=== PATIENT | female | born 1965 | race Caucasian/White ===

== ENCOUNTER 2020-07-22 15:18 | Outpatient (REF) | payer MEDICAID, SELFPAY ==
--- NOTE | 2020-07-22 | US_ITS ---
EXAMINATION: US THYROID CLINICAL INFORMATION: NTSNG. COMPARISON: Ultrasound soft tissue head/neck thyroid dated 05/01/2019 and 10/30/2017. TECHNIQUE: Linear transducer braun-scale and color Doppler examination with attention to the region of the thyroid. FINDINGS: SIZE: Measurements of the thyroid lobes and nodules are given in sagittal, anteroposterior and transverse dimensions respectively. Right Thyroid Lobe: 4.3 x 1.3 x 1.5 cm, volume 4.4 mL. Previously 4.3 x 1.6 x 1.4 cm, volume 5.0 mL. Parenchyma: The gland echotexture is homogeneous. Thyroid vascularity is normal. Left Thyroid Lobe: 4.4 x 1.3 x 1.2 cm, volume 3.6 mL. Previously 3.9 x 1.1 x 1.3 cm, volume 2.9 mL. Parenchyma: The gland echotexture is homogeneous. Thyroid vascularity is normal. Isthmus: 0.3 cm in maximum AP dimension. Previously 0.2 cm. RIGHT THYROID LOBE: There are 2 nodules seen. 1. Location: Middle. Size: 0.9 x 0.7 x 0.7 cm. Previous: 1.0 x 0.8 x 0.8 cm. Nodule characteristics: Heterogeneous and mainly Isoechoic and smoothly marginated. No calcifications. There is peripheral vascularity present. 2. Location: Middle. Size: 0.2 x 0.2 x 0.2 cm. Previous: 0.2 x 0.2 cm (SAG x TRV). Nodule characteristics: Hyperechoic and smoothly marginated with microcalcifications. No internal vascularity.. ISTHMUS: No nodules. LEFT THYROID LOBE: There is 1 nodule seen. 1. Location: Middle. Size: 0.6 x 0.4 x 0.7 cm. Previous: 0.5 x 0.4 x 0.5 cm. Nodule characteristics: Simple colloid cyst without calcification or internal vascularity.. NODES: No lymphadenopathy is seen in the tissue surrounding the thyroid gland. IMPRESSION: Stable appearance of the thyroid gland. Recommend follow-up study in 24 months..
== END 2020-07-22 15:19 | disposition home or self-care (01) ==
LOC: HO.US 15:18
PROVIDERS: Visit Provider Internal Medicine
DX: E04.1 Nontoxic single thyroid nodule (principal)
CPT/HCPCS: 76536

== ENCOUNTER 2020-12-14 12:03 | Emergency (ER) | payer MEDICAID, SELFPAY ==
--- NOTE | ~2020-12-14 | CT_ITS ---
EXAMINATION: CT BRAIN AND CT CERVICAL SPINE WITHOUT CONTRAST. CLINICAL INFORMATION: Fall. Unresponsive. COMPARISON: None TECHNIQUE: 5 mm thin axial and reformatted 2 mm thin sagittal and coronal images of brain were obtained without contrast. Subsequently axial 3 mm thin and reformatted 2 mm thin sagittal and coronal images of cervical spine were obtained. DLP 1260. FINDINGS: Brain: There is no acute intra-axial, extra-axial bleed, masses or midline shift. There is no acute infarction in evolution. The lateral ventricles are symmetrical in size and configuration without enlargement. The braun to white matter differentiation is maintained normal. There is no edema or mass effect. Bone windows reveal no calvarial abnormality. Bilateral paranasal sinuses and mastoid air cells are well-aerated. Cervical spine: There is maintained cervical lordosis. The vertebral heights, alignment and disc heights are normal. There is bilateral C7-T1 facet joint arthropathy. There is no acute fracture, dislocation or lytic process. The craniovertebral junction is normal. No lytic or sclerotic process seen. The prevertebral and paravertebral soft tissues are normal. CT/CT head/brain wo con IMPRESSION: No acute intracranial process seen. No acute fracture or dislocation in cervical spine. There is bilateral C7-T1 facet joint arthropathy.
--- NOTE | ~2020-12-14 | XR_ITS ---
EXAMINATION: XR CHEST CLINICAL INFORMATION: Concern for aspiration COMPARISON: 10/27/2017 TECHNIQUE: Frontal view of the chest was obtained. FINDINGS: Cardiac leads overlie the chest. Lung volumes are low. No consolidation, edema, or effusion. Minimal linear scarring/atelectasis at the left base. No pneumothorax. The cardiomediastinal silhouette is unremarkable. XR/XR chest 1V IMPRESSION: Linear left basilar atelectasis/scarring. Otherwise clear lungs.
--- NOTE | ~2020-12-14 | CT_ITS ---
EXAMINATION: CT BRAIN AND CT CERVICAL SPINE WITHOUT CONTRAST. CLINICAL INFORMATION: Fall. Unresponsive. COMPARISON: None TECHNIQUE: 5 mm thin axial and reformatted 2 mm thin sagittal and coronal images of brain were obtained without contrast. Subsequently axial 3 mm thin and reformatted 2 mm thin sagittal and coronal images of cervical spine were obtained. DLP 1260. FINDINGS: Brain: There is no acute intra-axial, extra-axial bleed, masses or midline shift. There is no acute infarction in evolution. The lateral ventricles are symmetrical in size and configuration without enlargement. The braun to white matter differentiation is maintained normal. There is no edema or mass effect. Bone windows reveal no calvarial abnormality. Bilateral paranasal sinuses and mastoid air cells are well-aerated. Cervical spine: There is maintained cervical lordosis. The vertebral heights, alignment and disc heights are normal. There is bilateral C7-T1 facet joint arthropathy. There is no acute fracture, dislocation or lytic process. The craniovertebral junction is normal. No lytic or sclerotic process seen. The prevertebral and paravertebral soft tissues are normal. CT/CT cervical spine wo con IMPRESSION: No acute intracranial process seen. No acute fracture or dislocation in cervical spine. There is bilateral C7-T1 facet joint arthropathy.
[2020-12-14 12:16] VITALS: BP 148/82; PULSE 78; RESP 18; TEMP 36.4; O2SAT 94; BMI 31.6
--- NOTE | 2020-12-14 12:54 | ECG_ITS ---
Test Reason : AMS Blood Pressure : / mmHG Vent. Rate : 073 BPM Atrial Rate : 073 BPM P-R Int : 206 ms QRS Dur : 086 ms QT Int : 414 ms P-R-T Axes : 049 010 025 degrees QTc Int : 456 ms Normal sinus rhythm Possible Left atrial enlargement Borderline ECG When compared with ECG of 20-MAY-2020 18:10, No significant change was found Referred By: Tracie Esteves Electronically Signed By:Elver Thompson
--- NOTE | 2020-12-14 13:01 | ED_ITS ---
HPI - General Adult General Chief complaint: General Medical Stated complaint: FOUND UNRESPONSIVE IN BED BY FAMILY Time Seen by Provider: 12/14/20 12:54 Source: family and EMS Mode of arrival: EMS Limitations: altered mental status History of Present Illness HPI narrative: 55 y/o female with history of depression, diabetes, HTN, HLD who presents to the ED via EMS with altered mental status. 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 After she got off the phone she started hyperventilating and having a panic attack. reports he called 911. On EMS arrival she was unresponsive. They reported psych issues. Patient arrives poorly responsive but protecting her airway. MD complaint: AMS Onset (ago): hour(s) Radiation: non-radiation Severity: severe Related Data Previous Rx's Medication Instructions Recorded hydroxyzine HCl 50 mg PO BID PRN #10 tab 12/14/20 Allergies Allergy/AdvReac Type Severity Reaction Status Date / Time coconut [COCONUT] Allergy Unknown RASH Unverified 06/25/20 19:25 peanut [PEANUTS] Allergy Unknown RASH Unverified 06/25/20 19:25 strawberry [STRAWBERRY] Allergy Unknown RASH Unverified 06/25/20 19:25 SEAFOOD Allergy Unknown RASH Uncoded 06/25/20 19:25 SHELLFISH Allergy Unknown Uncoded 06/13/19 00:00 Review of Systems Review of Systems: Yes Unobtainable due to mental status PMFSH Social History Social History Advance Directives: No Advance Directives Information Provided: No Physical Exam Vital Signs: Vital Signs: Last Vital Signs Temp 97.5 F 12/14/20 12:16 Pulse 78 12/14/20 12:16 Resp 18 12/14/20 12:16 BP 148/82 H 12/14/20 12:16 Pulse Ox 94 12/14/20 12:16 Body Mass Index 31.6 After a few minutes in the ER patient woke up and is neurologically intact Appearance: Alert. Oriented X3. No acute distress. Eyes: Pupils equal, round and reactive to light. ENT: Pharynx normal. Neck: Normal inspection. Neck supple. CVS: Normal heart rate and rhythm. Pulses normal. Respiratory: No respiratory distress. Breath sounds normal. Abdomen: Soft and nontender. +BS x4 Skin: Skin warm and dry. Normal skin color. Normal skin turgor. No rashes. Extremities: No lower extremity edema. Neuro: Oriented X 3. No motor deficit. No sensory deficit. Walks with steady gait, slight limp Course Course Course Narrative: 55 y/o female presenting with question of syncopal episode after hyeprvnetilation and panic attack at home. Will need to r/o cardiac and metabolic causes. She denies drug or ETOH use. She admits to reactions like this in the past when she gets stressful news. Reevaluation(s) Reevaluation #1: CT head negative. Metabolic workup is negative. She is ambulating with steady gait. She is stable for discharge. Medical Decision Making Lab Data Result diagrams: 12/14/20 14:13 12/14/20 14:13 Labs: Lab Results 12/14/20 12/14/20 12/14/20 Range/Units 14:13 14:13 14:13 WBC 6.6 (4.8-10.8) X10*3/uL RBC 4.05 L (4.20-5.50) X10*6/uL Hgb 12.1 (12.0-16.0) g/dl Hct 35.9 L (37-47) % MCV 88.6 (80-98) fL MCH 29.9 (27.0-33.0) pg MCHC 33.7 (31.0-35.0) g/dl RDW 13.2 (11.0-16.0) % Plt Count 236 (160-400) X10*3/uL MPV 10.4 (9.4-12.3) fL Immature Gran % (Auto) 0.5 H (0.0-0.4) % Neut % (Auto) 72.4 (45-73) % Lymph % (Auto) 15.2 L (20-40) % Pettis % (Auto) 7.0 (2-11) % Eos % (Auto) 4.6 H (0-4) % Baso % (Auto) 0.3 (0-2) % Lymph # (Auto) 1.0 L (1.2-4.9) X10*3/uL Pettis # (Auto) 0.5 (0.1-1.2) X10*3/uL Eos # (Auto) 0.3 (0.0-0.4) X10*3/uL Baso # (Auto) 0.0 (0.0-0.2) X10*3/uL Abs Immat Gran (auto) 0.03 (0.00-0.03) X10*3/uL Absolute Neuts (auto) 4.8 (2.0-8.3) X10*3/uL Absolute Nucleated RBC 0.000 (0.0-0.012) X10*3/uL Nucleated RBC % (auto) 0.0 (0.0-0.2) /100WBC PT 12.0 (10.8-13.0) SEC INR 1.0 (0.9-1.1) APTT 25.7 (24.1-38.0) SEC Sodium 141 (135-145) mmol/L Potassium 3.7 (3.3-5.1) mmol/L Chloride 101 (96-108) mmol/L Carbon Dioxide 31 H (22-29) mmol/L Anion Gap 13 (12-20) BUN 17 H (9-16) mg/dL Creatinine 0.84 (0.5-1.4) mg/dL Estim Creat Clear Calc 88.7 Estimated GFR > 60 Random Glucose 115 (60-115) mg/dL Lactic Acid (0.5-2.0) mmol/L Calcium 8.8 (8.4-10.2) mg/dL Magnesium 1.6 (1.6-2.6) mg/dL Total Bilirubin 0.4 (0.0-1.0) mg/dL Direct Bilirubin 0.2 (0.0-0.5) mg/dL AST 21 (5-31) U/L ALT 31 (0-31) U/L Alkaline Phosphatase 88 (39-117) U/L Ammonia (13-55) umol/L Total Protein 7.2 (6.5-8.0) g/dL Albumin 4.3 (3.5-5.0) g/dL TSH (0.32-4.0) uIU/mL Ethyl Alcohol mg/dL COVID-19 (JILLIAN) (Negative) COVID-19 Clin Com 12/14/20 12/14/20 12/14/20 Range/Units 14:13 14:13 14:13 WBC (4.8-10.8) X10*3/uL RBC (4.20-5.50) X10*6/uL Hgb (12.0-16.0) g/dl Hct (37-47) % MCV (80-98) fL MCH (27.0-33.0) pg MCHC (31.0-35.0) g/dl RDW (11.0-16.0) % Plt Count (160-400) X10*3/uL MPV (9.4-12.3) fL Immature Gran % (Auto) (0.0-0.4) % Neut % (Auto) (45-73) % Lymph % (Auto) (20-40) % Pettis % (Auto) (2-11) % Eos % (Auto) (0-4) % Baso % (Auto) (0-2) % Lymph # (Auto) (1.2-4.9) X10*3/uL Pettis # (Auto) (0.1-1.2) X10*3/uL Eos # (Auto) (0.0-0.4) X10*3/uL Baso # (Auto) (0.0-0.2) X10*3/uL Abs Immat Gran (auto) (0.00-0.03) X10*3/uL Absolute Neuts (auto) (2.0-8.3) X10*3/uL Absolute Nucleated RBC (0.0-0.012) X10*3/uL Nucleated RBC % (auto) (0.0-0.2) /100WBC PT (10.8-13.0) SEC INR (0.9-1.1) APTT (24.1-38.0) SEC Sodium (135-145) mmol/L Potassium (3.3-5.1) mmol/L Chloride (96-108) mmol/L Carbon Dioxide (22-29) mmol/L Anion Gap (12-20) BUN (9-16) mg/dL Creatinine (0.5-1.4) mg/dL Estim Creat Clear Calc Estimated GFR Random Glucose (60-115) mg/dL Lactic Acid 1.5 (0.5-2.0) mmol/L Calcium (8.4-10.2) mg/dL Magnesium (1.6-2.6) mg/dL Total Bilirubin (0.0-1.0) mg/dL Direct Bilirubin (0.0-0.5) mg/dL AST (5-31) U/L ALT (0-31) U/L Alkaline Phosphatase (39-117) U/L Ammonia (13-55) umol/L Total Protein (6.5-8.0) g/dL Albumin (3.5-5.0) g/dL TSH (0.32-4.0) uIU/mL Ethyl Alcohol < 10 mg/dL COVID-19 (JILLIAN) Negative (Negative) COVID-19 Clin Com See Note 12/14/20 12/14/20 Range/Units 14:13 14:13 WBC (4.8-10.8) X10*3/uL RBC (4.20-5.50) X10*6/uL Hgb (12.0-16.0) g/dl Hct (37-47) % MCV (80-98) fL MCH (27.0-33.0) pg MCHC (31.0-35.0) g/dl RDW (11.0-16.0) % Plt Count (160-400) X10*3/uL MPV (9.4-12.3) fL Immature Gran % (Auto) (0.0-0.4) % Neut % (Auto) (45-73) % Lymph % (Auto) (20-40) % Pettis % (Auto) (2-11) % Eos % (Auto) (0-4) % Baso % (Auto) (0-2) % Lymph # (Auto) (1.2-4.9) X10*3/uL Pettis # (Auto) (0.1-1.2) X10*3/uL Eos # (Auto) (0.0-0.4) X10*3/uL Baso # (Auto) (0.0-0.2) X10*3/uL Abs Immat Gran (auto) (0.00-0.03) X10*3/uL Absolute Neuts (auto) (2.0-8.3) X10*3/uL Absolute Nucleated RBC (0.0-0.012) X10*3/uL Nucleated RBC % (auto) (0.0-0.2) /100WBC PT (10.8-13.0) SEC INR (0.9-1.1) APTT (24.1-38.0) SEC Sodium (135-145) mmol/L Potassium (3.3-5.1) mmol/L Chloride (96-108) mmol/L Carbon Dioxide (22-29) mmol/L Anion Gap (12-20) BUN (9-16) mg/dL Creatinine (0.5-1.4) mg/dL Estim Creat Clear Calc Estimated GFR Random Glucose (60-115) mg/dL Lactic Acid (0.5-2.0) mmol/L Calcium (8.4-10.2) mg/dL Magnesium (1.6-2.6) mg/dL Total Bilirubin (0.0-1.0) mg/dL Direct Bilirubin (0.0-0.5) mg/dL AST (5-31) U/L ALT (0-31) U/L Alkaline Phosphatase (39-117) U/L Ammonia 34 (13-55) umol/L Total Protein (6.5-8.0) g/dL Albumin (3.5-5.0) g/dL TSH 0.83 (0.32-4.0) uIU/mL Ethyl Alcohol mg/dL COVID-19 (JILLIAN) (Negative) COVID-19 Clin Com ECG Data Attestation: I personally reviewed and interpreted this ECG as follows: Prior ECG tracings: available for review Interpretation: normal sinus rhythm, HR 73 bpm, prolonged CO interval 206 ms, normal QTc, no ST segment elevations. unchanged from prior EKG Critical Care Time Critical Care Time Critical Care Time: No Discharge Plan Discharge Clinical Impression: Anxiety reaction Patient Disposition: Home, Self-Care Instructions: Panic Attack (ED) Additional Instructions: Your lab workup today was unremarkable. Your CT scan of your brain was normal. Your symptoms were due to panic attack and anxiety after hearing stressful news. Recommend follow up with your doctor tomorrow. Take the prescribed medication as needed for anxiety. If you have recurrent symptoms or develop any new or concerning symptoms come back to the ER for further evaluation. Prescriptions: New hydroxyzine HCl 50 mg tablet 50 mg PO BID PRN (Reason: anxiety) Qty: 10 RF: 0 Print Language: Slovenian
[2020-12-14 14:20] LABS: MANUAL DIFF FLAG NO
[2020-12-14 14:27] LABS: Basophils Percent Auto 0.3 % (0-2); Eosinophils Absolute Auto 0.3 X10*3/uL (0.0-0.4); Eosinophils Percent Auto 4.6 % (0-4); Hematocrit 35.9 % (37-47); Hemoglobin 12.1 g/dl (12.0-16.0); Imm Gran Abs Auto 0.03 X10*3/uL (0.00-0.03); Imm Gran Pct Auto 0.5 % (0.0-0.4); Lymphocytes Percent Auto 15.2 % (20-40); Mean Corpuscular HGB Conc 33.7 g/dl (31.0-35.0); Mean Corpuscular Hemoglobin 29.9 pg (27.0-33.0); Mean Corpuscular Volume 88.6 fL (80-98); Mean Platelet Volume 10.4 fL (9.4-12.3); Monocytes Absolute Auto 0.5 X10*3/uL (0.1-1.2); Neutrophils Absolute Auto 4.8 X10*3/uL (2.0-8.3); Neutrophils Percent Auto 72.4 % (45-73); Platelet Count 236 X10*3/uL (160-400); Red Blood Count 4.05 X10*6/uL (4.20-5.50); Red Cell Distribution Width 13.2 % (11.0-16.0); White Blood Count 6.6 X10*3/uL (4.8-10.8)
[2020-12-14 14:31] LABS: Partial Thromboplastin Time 25.7 SEC (24.1-38.0)
[2020-12-14 14:38] LABS: Ammonia 34 umol/L (13-55)
[2020-12-14 14:39] LABS: COVID-19 Test Negative (Negative)
[2020-12-14 14:41] LABS: Lactic Acid 1.5 mmol/L (0.5-2.0)
[2020-12-14 14:48] LABS: Ethanol < 10 mg/dL
[2020-12-14 14:49] LABS: Alanine Aminotransferase 31 U/L (0-31); Albumin Level 4.3 g/dL (3.5-5.0); Alkaline Phosphatase 88 U/L (39-117); Anion Gap 13 (12-20); Aspartate Amino Transferase 21 U/L (5-31); Bilirubin Direct 0.2 mg/dL (0.0-0.5); Bilirubin Total 0.4 mg/dL (0.0-1.0); Blood Urea Nitrogen 17 mg/dL (9-16); Calcium 8.8 mg/dL (8.4-10.2); Carbon Dioxide 31 mmol/L (22-29); Chloride 101 mmol/L (96-108); Creatinine Clr Calc Pharmacy 88.7; Estimated Glomerular Filt Rate > 60; Glucose Random 115 mg/dL (60-115); Magnesium 1.6 mg/dL (1.6-2.6); Potassium 3.7 mmol/L (3.3-5.1); Sodium 141 mmol/L (135-145); Total Protein 7.2 g/dL (6.5-8.0)
[2020-12-14 15:05] LABS: TSH reflex Free T4 0.83 uIU/mL (0.32-4.0)
[2020-12-14 18:23] VITALS: BP 130/80; PULSE 75; RESP 18; TEMP 36.8; O2SAT 96
== END 2020-12-14 18:24 | disposition home or self-care (01) ==
PROVIDERS: Physician Assistant; Emergency Provider Emergency Medicine; PCP Internal Medicine
DX: F41.0 Panic disorder [episodic paroxysmal anxiety] (principal); F41.9 Anxiety disorder, unspecified; Z20.822 Contact with and (suspected) exposure to COVID-19
CPT/HCPCS: 36415; 70450; 71045; 72125; 80048; 80076; 80320; 82140; 83605; 83735; 84443; 85025; 85610; 85730; 87040; 87635; 93005; 99283; 99284

== ENCOUNTER 2020-12-30 11:11 | Emergency (ER) | payer MEDICAID, SELFPAY ==
--- NOTE | ~2020-12-30 | XR_ITS ---
EXAMINATION: XR ANKLE, RIGHT XR FOOT, RIGHT CLINICAL INFORMATION: Fall, trauma, pain COMPARISON: None TECHNIQUE: 2 views right ankle, 2 views right foot, a lateral view of the combined right ankle and foot are obtained for a total of 5 views. FINDINGS: Right ankle shows no fracture or dislocation. The malleoli are intact and the ankle mortise is symmetric. Talar dome shows no osteochondral lesion. There is no visible ankle capsular effusion. The retrocalcaneal recess is preserved. There are posterior and plantar calcaneal spurs. The subtalar joint is unremarkable. The right midfoot and forefoot show no fracture or dislocation. There are degenerative changes DIP joints of the third and fourth toes. No visible erosive change. XR/XR foot RT min 3V IMPRESSION: 1. No fracture or dislocation. 2. Posterior and plantar calcaneal spurs. 3. Osteoarthritic changes DIP joints third and fourth toes.
--- NOTE | ~2020-12-30 | XR_ITS ---
EXAMINATION: XR HIP, RIGHT CLINICAL INFORMATION: Fall, trauma, pain COMPARISON: None TECHNIQUE: AP pelvis is performed along with AP and frog-lateral projections of the right hip. FINDINGS: There is no fracture or dislocation. The SI joints and pubis show no diastases. There is borderline/mild osteitis pubis. Right hip shows no fracture or dislocation. No hip joint narrowing or erosive change. There is mild spurring bilateral greater trochanters. Some borderline whiskering bilateral lateral iliac wings. Bowel gas unremarkable. XR/XR hip RT w PEL1V IMPRESSION: No fracture or dislocation.
--- NOTE | ~2020-12-30 | XR_ITS ---
EXAMINATION: XR SHOULDER, RIGHT CLINICAL INFORMATION: Fall, trauma, pain COMPARISON: None TECHNIQUE: Right shoulder is imaged in 4 views. FINDINGS: There is no fracture, dislocation, or destructive process. Punctate calcific tendinosis is present adjacent to the greater tuberosity in region of distal infraspinatus. There is some mineralization in the acromioclavicular joint. No erosive change. The acromioclavicular alignment is normal. The glenohumeral joint is normal. Visualized right lung apex shows no pneumothorax or pleural reaction. XR/XR shoulder RT min 2V IMPRESSION: Punctate calcific tendinosis in region of distal infraspinatus. No fracture or dislocation.
--- NOTE | ~2020-12-30 | XR_ITS ---
EXAMINATION: XR ANKLE, RIGHT XR FOOT, RIGHT CLINICAL INFORMATION: Fall, trauma, pain COMPARISON: None TECHNIQUE: 2 views right ankle, 2 views right foot, a lateral view of the combined right ankle and foot are obtained for a total of 5 views. FINDINGS: Right ankle shows no fracture or dislocation. The malleoli are intact and the ankle mortise is symmetric. Talar dome shows no osteochondral lesion. There is no visible ankle capsular effusion. The retrocalcaneal recess is preserved. There are posterior and plantar calcaneal spurs. The subtalar joint is unremarkable. The right midfoot and forefoot show no fracture or dislocation. There are degenerative changes DIP joints of the third and fourth toes. No visible erosive change. XR/XR ankle RT 2V IMPRESSION: 1. No fracture or dislocation. 2. Posterior and plantar calcaneal spurs. 3. Osteoarthritic changes DIP joints third and fourth toes.
[2020-12-30 11:18] VITALS: BP 148/76; PULSE 86; O2SAT 96
[2020-12-30 11:22] VITALS: BP 138/82; PULSE 80; RESP 16; TEMP 36.8; O2SAT 100; BMI 39.4
[2020-12-30] MEDS: Ketorolac Tromethamine 30 MG/ML VIAL IM (12:47)
[2020-12-30] MEDS: Cyclobenzaprine HCl 5 MG TABLET PO (12:47)
--- NOTE | 2020-12-30 14:00 | ED_ITS ---
HPI - Fall General Chief Complaint: Fall Stated Complaint: fell down 2 steps, pain Time Seen by Provider: 12/30/20 12:16 Related Data Previous Rx's Medication Instructions Recorded hydroxyzine HCl 50 mg PO BID PRN #10 tab 12/14/20 acetaminophen [Tylenol Extra 500 mg PO Q6H PRN #20 tab 12/30/20 Strength] cyclobenzaprine 5 mg PO Q8H PRN 5 Days #14 tab 12/30/20 lidocaine [Lidoderm] 1 patch TOPICAL DAILY PRN #30 ea 12/30/20 MDD remove after 12 hours naproxen 500 mg PO BID PRN 10 Days #20 tab 12/30/20 Allergies Allergy/AdvReac Type Severity Reaction Status Date / Time coconut [COCONUT] Allergy Unknown RASH Unverified 06/25/20 19:25 peanut [PEANUTS] Allergy Unknown RASH Unverified 06/25/20 19:25 strawberry [STRAWBERRY] Allergy Unknown RASH Unverified 06/25/20 19:25 SEAFOOD Allergy Unknown RASH Uncoded 06/25/20 19:25 SHELLFISH Allergy Unknown Uncoded 06/13/19 00:00 [facility] Past Medical History Medical History (Updated 12/30/20 @ 14:09 by LIBRADO Garcia) Depression Diabetes HTN (hypertension) Sleep apnea Social History Social History Alcohol intake: never Smoking Status: Never smoker Use of substances other than those prescribed or required for medical reasons: No Advance Directives: No Advance Directives Information Provided: No Physical Exam Vital Signs: Vital Signs: Last Vital Signs Temp 98.2 F 12/30/20 11:22 Pulse 80 12/30/20 11:22 Resp 16 12/30/20 11:22 BP 138/82 12/30/20 11:22 Pulse Ox 100 12/30/20 11:22 Body Mass Index 39.4 Course Course Course Narrative: XR shoulder RT min 2V IMPRESSION: Punctate calcific tendinosis in region of distal infraspinatus. No fracture or dislocation. XR hip RT w PEL1V IMPRESSION: No fracture or dislocation XR foot RT min 3V IMPRESSION: 1. No fracture or dislocation. 2. Posterior and plantar calcaneal spurs. 3. Osteoarthritic changes DIP joints third and fourth toes >> patient placed in Aircast to right ankle to follow-up with PCP. 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 She verbalized understanding and feels safe for discharge home Discharge Plan Discharge Clinical Impression: Right ankle sprain Qualifiers: Encounter type: initial encounter Involved ligament of ankle: unspecified ligament Qualified Code(s): S93.401A - Sprain of unspecified ligament of right ankle, initial encounter Shoulder tendinitis Qualifiers: Laterality: right Qualified Code(s): M77.8 - Other enthesopathies, not elsewhere classified Fall Qualifiers: Encounter type: initial encounter Qualified Code(s): W19.XXXA - Unspecified fall, initial encounter Patient Disposition: Home, Self-Care Instructions: Ankle Sprain (ED), Tendinitis (ED) Additional Instructions: You likely sprained her ankle. Wear Aircast at home as needed for comfort/stability. Ice and elevate your ankle Your pain is likely musculoskeletal Flexeril is a muscle relaxer, take at night as it makes you drowsy, do not drive, drink alcohol, or operate machinery while taking it Naproxen as an anti-inflammatory / pain medication, take with food Lidoderm patches are numbing patches, apply to painful area In addition take Tylenol at home Follow-up with your doctor If symptoms persist or worsen, pain becomes unbearable, you developed urinary retention or incontinence, or weakness return to the ED Probablemente le hizo un esguince en el tobillo. Use Aircast en casa seg?n sea necesario para mayor comodidad / estabilidad. Hielo y eleva tu tobillo Es probable que milan dolor sea musculoesquel?daryl Flexeril es un relajante muscular, t?blood por la noche ya que le produce somnolencia, no conduzca, no herson alcohol ni utilice maquinaria mientras lo beverly. Naproxeno mariela medicamento antiinflamatorio / analg?sico, drew con alimentos. Los parches de Lidoderm son parches que adormecen, se aplican al ?maritza dolorida Adem?s, tome Tylenol en casa. Seguimiento con milan m?dico Si los s?ntomas persisten o empeoran, el dolor se vuelve insoportable, desarroll? retenci?n urinaria o incontinencia, o debilidad regrese al servicio de urgencias Prescriptions: New acetaminophen [Tylenol Extra Strength] 500 mg tablet 500 mg PO Q6H PRN (Reason: pain or fever) Qty: 20 RF: 0 lidocaine [Lidoderm] 5 % adhesive patch,medicated 1 patch topical DAILY MDD remove after 12 hours PRN (Reason: pain) Qty: 30 RF: 0 naproxen 500 mg tablet 500 mg PO BID PRN (Reason: pain) 10 Days Qty: 20 RF: 0 cyclobenzaprine 5 mg tablet 5 mg PO Q8H PRN (Reason: pain (scale score 7-10)) 5 Days Qty: 14 RF: 0 No Action hydroxyzine HCl 50 mg tablet 50 mg PO BID PRN (Reason: anxiety) Qty: 10 RF: 0 Referrals: Wicho Elmore MD [Emergency Provider] - 5 days Print Language: Kazakh
== END 2020-12-30 14:30 | disposition home or self-care (01) ==
PROVIDERS: Emergency Provider Emergency Medicine
DX: S93.401A Sprain of unspecified ligament of right ankle, initial encounter (principal); W10.8XXA Fall (on) (from) other stairs and steps, initial encounter; M75.31 Calcific tendinitis of right shoulder; E11.9 Type 2 diabetes mellitus without complications; I10 Essential (primary) hypertension; Y93.9 Activity, unspecified; Y92.038 Other place in apartment as the place of occurrence of the external cause; Y99.9 Unspecified external cause status
CPT/HCPCS: 73030; 73502; 73600; 73630; 96372; 99284; J1885

== ENCOUNTER 2021-04-30 11:35 | Outpatient (REF) | payer MEDICAID, SELFPAY ==
--- NOTE | ~2021-04-30 | XR_ITS ---
EXAMINATION: XR LUMBOSACRAL SPINE WITH OBLIQUES CLINICAL INFORMATION: Lumbago with sciatica, bilateral.. COMPARISON: None TECHNIQUE: AP, both oblique, and lateral views of the lumbar spine. Lateral view of the lumbosacral junction. FINDINGS: There is maintained lumbar lordosis. The vertebral heights, alignment and disc heights are normal. On oblique views there is no pars defect or listhesis. No acute fracture or lytic process seen. The soft tissues are normal. XR/XR lumbar spine 4V min IMPRESSION: Unremarkable lumbar spine exam. No acute fracture, dislocation or subluxation seen.
--- NOTE | ~2021-04-30 | XR_ITS ---
EXAMINATION: XR HIP, RIGHT XR HIP, LEFT CLINICAL INFORMATION: Fall. Pain. COMPARISON: Right hip radiographs dated 12/30/2020 TECHNIQUE: AP view of the pelvis as well as AP and frog-leg lateral views of the right and left hip. FINDINGS: No acute fracture or dislocation. Small right and left acetabular marginal osteophytes, unchanged. No significant joint space narrowing. No osseous erosion. Pelvic phleboliths. XR/XR hip RT min 2V IMPRESSION: Mild right and left hip osteoarthritis, unchanged. No acute osseous abnormality.
--- NOTE | ~2021-04-30 | XR_ITS ---
EXAMINATION: XR HIP, RIGHT XR HIP, LEFT CLINICAL INFORMATION: Fall. Pain. COMPARISON: Right hip radiographs dated 12/30/2020 TECHNIQUE: AP view of the pelvis as well as AP and frog-leg lateral views of the right and left hip. FINDINGS: No acute fracture or dislocation. Small right and left acetabular marginal osteophytes, unchanged. No significant joint space narrowing. No osseous erosion. Pelvic phleboliths. XR/XR hip LT min 2V IMPRESSION: Mild right and left hip osteoarthritis, unchanged. No acute osseous abnormality.
== END 2021-04-30 11:36 | disposition home or self-care (01) ==
LOC: HO.XRAY 11:35
PROVIDERS: PCP Internal Medicine; Visit Provider Internal Medicine
DX: M54.41 Lumbago with sciatica, right side (principal); M54.42 Lumbago with sciatica, left side
CPT/HCPCS: 72110; 73502

== ENCOUNTER 2021-05-27 13:14 | Outpatient (RCR) | payer MEDICAID, SELFPAY | END 2021-07-22 15:14 | disposition home or self-care (01) | LOC: HO.PT 13:14 | PROVIDERS: PCP Internal Medicine; Visit Provider Internal Medicine | DX: M54.42 Lumbago with sciatica, left side (principal); M54.41 Lumbago with sciatica, right side; W19.XXXD Unspecified fall, subsequent encounter | CPT/HCPCS: 97162 ==

== ENCOUNTER 2021-06-11 08:51 | Outpatient (REF) | payer MEDICAID, SELFPAY ==
--- NOTE | ~2021-06-11 | MR_ITS ---
EXAMINATION: MR LUMBAR SPINE WITHOUT CONTRAST CLINICAL INFORMATION: Urinary incontinence. COMPARISON: Plain films of the lumbar spine 04/30/2021. TECHNIQUE: MRI of the lumbar spine was obtained using routine sequences without contrast. FINDINGS: VERTEBRAL BODIES AND PARASPINAL STRUCTURES: There is anatomic alignment of the vertebral bodies. There is narrowing of intervertebral disc height at the level of L4-L5 with loss of signal from the disc and there are mild degenerative endplate contour changes with predominantly fatty signal. There is loss of intervertebral disc height and signal at the levels of L3-L4 and L5-S1. There are mild edematous endplate signal changes along the endplates at L5-S1. Vertebral body heights are maintained and no fractures are demonstrated. There is a focus of hyperintense T1 and T2 signal in the body of L1 toward the right, most consistent with a hemangioma. There is a cyst at the upper pole of the left kidney. A small cyst is noted at the midpole of the right kidney posteriorly. The visualized pelvic structures are unremarkable. CONUS MEDULLARIS AND CAUDA EQUINA: Normal, terminating at the level of T12-L1. The lower thoracic spinal cord appears normal. The cauda equina nerve roots and filum terminale appear normal. SPINAL LEVELS: T12-L1: The facet joints appear normal bilaterally. Disc contour is normal. There is no central stenosis or foraminal narrowing. L1-L2: The facet joints appear normal bilaterally. Disc contour is normal. There is no central stenosis or foraminal narrowing. L2-L3: The facet joints appear normal bilaterally. Disc contour is normal. There is no central stenosis or foraminal narrowing. L3-L4: There is mild bilateral facet arthropathy with ligamenta flava hypertrophy and small facet joint effusions. There is a posterior disc protrusion extending into the inferior neural foramina bilaterally without definite exiting nerve root impingement. There are small cysts in the neural foramina bilaterally, larger on the right. There is no central stenosis. L4-L5: There is moderate to severe bilateral facet arthropathy with ligamenta flava hypertrophy and facet joint effusions. There is a broad-based posterior disc protrusion which extends into the inferior neural foramina bilaterally without definite exiting nerve root impingement. In addition, there is a disc extrusion on the right extending caudad into the right lateral recess of L5. There is impingement on the traversing right L5 nerve root, and there severe compression of the thecal sac, which is displaced toward the left. L5-S1: There is moderate bilateral facet arthropathy with bilateral facet joint effusions. There is a posterior disc protrusion which is most prominent extending into the left neural foramen without definite exiting nerve root impingement. A small extruded component extends in the midline behind the body of S1 and there is mild impingement on the traversing S1 nerve roots. There is no central stenosis. MR/MR lumbar spine wo con IMPRESSION: 1. At L4-L5 there is facet arthropathy and there is a broad-based posterior disc protrusion/extrusion. The extrusion extends into the right lateral recess of L5 and there is impingement on the traversing right L5 nerve root with severe compression of the thecal sac which is displaced toward the left. 2. At L5-S1 there is facet arthropathy and there is a posterior disc protrusion, with a small extruded component. There is mild impingement on the traversing S1 nerve roots. There is no central stenosis. 3. At L3-L4 there is facet arthropathy and is a posterior disc protrusion without definite exiting nerve root impingement. There is no central stenosis.
== END 2021-06-11 08:52 | disposition home or self-care (01) ==
LOC: HO.MRI 08:51
PROVIDERS: PCP Internal Medicine; Visit Provider Family Medicine
DX: M54.17 Radiculopathy, lumbosacral region (principal); R29.898 Other symptoms and signs involving the musculoskeletal system; R32 Unspecified urinary incontinence
CPT/HCPCS: 72148

== ENCOUNTER 2021-06-25 13:15 | Outpatient (REF) | payer MEDICAID, SELFPAY ==
--- NOTE | ~2021-06-25 | MM_ITS ---
EXAMINATION: MM SCREENING DIGITAL BREAST TOMOSYNTHESIS, BILATERAL CLINICAL INFORMATION: Screening. Asymptomatic. The lifetime risk of breast cancer based on the Tyrer-Cuzick Model is 6.1%. COMPARISON: Mammography: November 14, 2018 and studies dating back to January 30, 2018 TECHNIQUE: Digital breast tomosynthesis is performed in both the craniocaudal and mediolateral oblique views along with computer-aided detection (CAD). Synthesized 2D images are generated from the tomosynthesis. FINDINGS: The breasts are almost entirely fatty (ACR BI-RADS breast composition Category a). There are no significant masses, abnormal calcifications, or other abnormalities. Stable circumscribed densities are seen bilaterally. MM/MM tomosynthesis screening BI IMPRESSION: There are no significant changes from prior study. ASSESSMENT: BI-RADS 2: Benign RECOMMENDATION: Routine annual mammography screening. This patient's information was entered into a reminder system with a target due date for their next mammogram.
== END 2021-06-25 13:16 | disposition home or self-care (01) ==
LOC: HO.MAMMO 13:15
PROVIDERS: PCP Internal Medicine; Visit Provider Internal Medicine
DX: Z12.31 Encounter for screening mammogram for malignant neoplasm of breast (principal)
CPT/HCPCS: 77063; 77067

== ENCOUNTER 2022-03-21 12:17 | Emergency (ER) | payer MEDICAID, SELFPAY ==
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
[2022-03-21 12:21] VITALS: BP 148/80; PULSE 88; O2SAT 95
[2022-03-21 12:22] VITALS: BP 154/87; PULSE 31; RESP 18; TEMP 36.6; O2SAT 95; BMI 31.6
[2022-03-21] MEDS: Cyclobenzaprine HCl 10 MG TABLET PO (13:04)
[2022-03-21] MEDS: Acetaminophen 325 MG TABLET 975 MG PO (13:05)
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
== END 2022-03-21 16:18 | disposition home or self-care (01) ==
PROVIDERS: Emergency Provider Emergency Medicine
DX: S06.0X0A Concussion without loss of consciousness, initial encounter (principal); S13.4XXA Sprain of ligaments of cervical spine, initial encounter; S46.911A Strain of unspecified muscle, fascia and tendon at shoulder and upper arm level, right arm, initial encounter; S46.811A Strain of other muscles, fascia and tendons at shoulder and upper arm level, right arm, initial encounter; S86.811A Strain of other muscle(s) and tendon(s) at lower leg level, right leg, initial encounter; I10 Essential (primary) hypertension; E11.9 Type 2 diabetes mellitus without complications; V43.62XA Car passenger injured in collision with other type car in traffic accident, initial encounter; Y93.9 Activity, unspecified; Y92.410 Unspecified street and highway as the place of occurrence of the external cause; Y99.9 Unspecified external cause status
CPT/HCPCS: 70450; 72125; 73030; 73080; 73564; 99283; 99284

== ENCOUNTER 2022-07-01 13:52 | Outpatient (REF) | payer MEDICAID, SELFPAY ==
--- NOTE | ~2022-07-01 | MM_ITS ---
EXAMINATION: MM SCREENING DIGITAL BREAST TOMOSYNTHESIS, BILATERAL CLINICAL INFORMATION: Screening. Asymptomatic. Left excisional biopsy 03/09/2018 (radial sclerosing lesion, intraductal papillomatosis, usual ductal hyperplasia, adenosis). The lifetime risk of breast cancer based on the Tyrer-Cuzick Model is 6%. COMPARISON: Mammography: 06/25/2021, 11/14/2018, 03/09/2018, 02/25/2018, 01/30/2018. TECHNIQUE: Digital breast tomosynthesis is performed in both the craniocaudal and mediolateral oblique views along with computer-aided detection (CAD). Synthesized 2D images are generated from the tomosynthesis. FINDINGS: There are scattered areas of fibroglandular density (ACR BI-RADS breast composition Category b). Parenchymal pattern is similar to prior studies. There is no developing density or interval significant mass or architectural abnormality or abnormal calcifications. There is a biopsy clip marker overlying stable circumscribed nodule posterior upper outer left breast. Other bilateral scattered minor smooth nodularity and intramammary nodes are stable. The skin contours are smooth. MM/MM tomosynthesis screening BI IMPRESSION: No mammographic evidence of malignancy. ASSESSMENT: BI-RADS 2: Benign RECOMMENDATION: Routine annual mammography screening. This patient's information was entered into a reminder system with a target due date for their next mammogram.
== END 2022-07-01 13:53 | disposition home or self-care (01) ==
LOC: HO.MAMMO 13:52
PROVIDERS: PCP Internal Medicine; Visit Provider Internal Medicine
DX: Z12.31 Encounter for screening mammogram for malignant neoplasm of breast (principal)
CPT/HCPCS: 77063; 77067

== ENCOUNTER 2023-04-28 18:47 | Outpatient (REF) | payer MEDICAID, SELFPAY ==
[2023-04-28 19:39] LABS: Influenza A PCR NEGATIVE (Negative); Influenza B PCR NEGATIVE (Negative); Resp Syncy Virus RNA Qual PCR NEGATIVE (Negative); SARS COV2 PCR INHOUSE NEGATIVE (Negative)
== END 2023-04-28 18:48 | disposition home or self-care (01) ==
LOC: HO.HHCLNP 18:47
PROVIDERS: Visit Provider Student in an Organized Health Care Education/Training Program
DX: Z20.822 Contact with and (suspected) exposure to COVID-19 (principal); R19.7 Diarrhea, unspecified
CPT/HCPCS: 0241U

== ENCOUNTER 2023-06-21 12:47 | Outpatient (REF) | payer MEDICAID, SELFPAY ==
[2023-06-21 17:16] LABS: Vitamin D 25-OH Total 29.6 ng/mL (>30)
[2023-06-22 05:34] LABS: HBS Num1 0.28 mIU/mL (0-7.99); HBc Num1 0.09 S/CO (0.00-0.79); HBsAGNum1 0.27 S/CO (0.00-0.99); Hepatitis A Antibody IgM 0.17 Index (0-0.79); Hepatitis B Core Antibody Nonreactive (Nonreactive); Hepatitis B Surface Antigen Negative (Negative); ~HepC Num1 0.07 S/CO (0.00-0.79); ~Hepatitis A Antibody IgM Nonreactive (Nonreactive); ~Hepatitis B Surface Antibody NONREACTIVE (Nonreactive); ~Hepatitis C Antibody Nonreactive (Nonreactive)
[2023-06-23 01:59] LABS: Rubella IgG Antibody 9.87 Index; Rubeola IgG (Measles) >300.00 AU/mL
[2023-06-23 22:13] LABS: TS Negative Control Passed; TS Panel A 0; TS Panel B 0; TS Positive Control Passed; TSpotTB Negative (Negative)
== END 2023-06-21 12:48 | disposition home or self-care (01) ==
LOC: HO.HHCL 12:47
PROVIDERS: Visit Provider Internal Medicine
DX: Z00.00 Encounter for general adult medical examination without abnormal findings (principal); Z11.1 Encounter for screening for respiratory tuberculosis
CPT/HCPCS: 36415; 82306; 86481; 86704; 86706; 86709; 86735; 86762; 86765; 86787; 86803; 87340

== ENCOUNTER 2023-07-26 09:31 | Outpatient (AMB) | payer MEDICAID, SELFPAY ==
[2023-07-26 10:25] VITALS: BP 144/79; PULSE 84; RESP 18; O2SAT 96; BMI 38.4
--- NOTE | 2023-07-26 10:25 | MHC.OFFVIS ---
Intake Vital Signs 07/26/23 10:25 Height 5 ft 1 in Weight 203 lb BMI 38.4 BP 144/79 H Blood Pressure Location Lt brachial Position Sitting Respiration 18 Pulse 84 Pulse Source Pulse Oximeter Pulse Oximetry (%) 96 Oxygen Delivery Method Room Air Intake Visit Reasons: LUMBAR RADICULOPATHY Allergies coconut [COCONUT] Allergy (Unknown, Unverified 06/25/20 19:25) RASH peanut [PEANUTS] Allergy (Unknown, Unverified 06/25/20 19:25) RASH strawberry [STRAWBERRY] Allergy (Unknown, Unverified 06/25/20 19:25) RASH SEAFOOD Allergy (Unknown, Uncoded 06/25/20 19:25) RASH SHELLFISH Allergy (Unknown, Uncoded 07/26/23 10:21) Unknown HPI HPI Comments History of Present Illness Details Amie is a very pleasant 57 year old female who presents to the office today for evaluation and management of her chronic lower back pain. Patient reports she has been suffering with this pain for many years. She had surgery to her lumbar spine 11/2022 at [facility], she is not able to recall the surgeons name or details of the procedure other than it was for a pinched nerve and disc removal . She states since surgery she is no longer having pain down her right leg, but the pain to her lower back persists. She followed up with the surgeon and was told she will always be in pain . She has tried lidocaine patches with minimal relief. She takes tylenol and gabapentin which do little for her back pain. Patient states she completed PT greater than 3 months ago which helped some. She has never received injections to her back. She states the pain is constant stabbing, rated today as 8/10. Pain is worse with any movement and with bending forward. She ambulates with rollator walker. She has not found anything that relieves the pain. She denies red flag symptoms including new loss of bowel, bladder or saddle anesthesia. In terms of muscle damage condition is described as aching and stabbing. Pain is negatively impacting patient's general activity, sleep and walking. PMH significant for DM, she states her sugars have been running between 200-300's. PCP recently increased her medication. She believes her most recent A1c was around 8. [facility] Medical History Depression Diabetes HTN (hypertension) Sleep apnea Social History Alcohol intake: never Review of Systems Const All systems reviewed & are unremarkable except as noted in HPI and below Physical Exam Vital Signs: Last Vital Signs Pulse 84 07/26/23 10:25 Resp 18 07/26/23 10:25 BP 144/79 H 07/26/23 10:25 Pulse Ox 96 07/26/23 10:25 Oxygen Delivery Method Room Air 07/26/23 10:25 BMI result Body Mass Index 38.4 General: awake, alert, oriented. Answers questions appropriately. Fully engaged in examination. Skin: warm, dry, intact HEENT: Normocephalic. Hearing intact. Cardiac: External chest normal in appearance. Respiratory: No cough, audible wheezing or stridor. Abdomen: without gross distension. MS: No obvious swelling or deformities. Able to transition from sit to stand unassisted. Ambulates with use of rollator walker limited ROM with flexion to 40 degrees, extension 10 degrees. pain worse with flexion. Tenderness to palpation bilateral paraspinal muscles and bilateral PSIS R>L SLR with and without dorsiflexion negative bilaterally Gaenslen positive bilaterally r>l Thigh thrust positive bilaterally, r>l SIJ compression positive bilaterally Facet loading positive bilaterally BLE strength 4/5 DTR intact BLE Neurological: Oriented to person, place, time and situation. Thought process intact. Psychiatric: Appropriate mood and affect. Good judgment and insight. Assessment & Plan Assessment & Plan (1) Sacroiliac joint dysfunction of both sides: Code(s): M53.3 - Sacrococcygeal disorders, not elsewhere classified (2) Post laminectomy syndrome: Code(s): M96.1 - Postlaminectomy syndrome, not elsewhere classified (3) Lumbar spondylosis: Code(s): M47.816 - Spondylosis without myelopathy or radiculopathy, lumbar region Plan Amie is a very pleasant 57 year old female who presented to the office today for evaluation and management of her chronic lower back pain. History, physical exam and provocative testing consistent with lumbar spondylosis, bilateral SIJ dysfunction and post laminectomy syndrome. Xray LS ordered for evaluation. Records requested from Neurosurgeon and PCP for review. Baclofen 5mg po bid prn ordered, patient advised on caution for use. Will start at bedtime, may take twice daily as tolerated. No driving or taking with CARD PUNCHER depressants. PT eval and treat order placed. Discussed options for treatment including diagnostic interventional testing, epidural steroid injections, peripheral nerve stimulation with Sprint, RFA and more permanent neuromodulation. Patient advised we will discuss further after completion of PT and once medical records have been received/reviewed. If A1c is 8 or above she would need to work on lowering that before any interventional treatments could be offered d/t increased risks. All questions and concerns have been answered and patient agrees with the plan. Follow up after PT, sooner if needed. Orders: Orders XR lumbar spine 4V min Today M47.816 - Spondylosis without myelopathy or radiculopathy, lumbar region, M96.1 - Postlaminectomy syndrome, not elsewhere classified PT Evaluation and Treatment Today M47.816 - Spondylosis without myelopathy or radiculopathy, lumbar region, M53.3 - Sacrococcygeal disorders, not elsewhere classified, M96.1 - Postlaminectomy syndrome, not elsewhere classified Medications: New baclofen 5 mg PO BID PRN 30 tabs 0RF muscle spasm Coding Level of Care Code New Pt Level 4 (32709) Diagnoses Sacroiliac joint dysfunction of both sides M53.3 Post laminectomy syndrome M96.1 Lumbar spondylosis M47.816
== END 2023-07-26 10:54 | disposition home or self-care (01) ==
PROVIDERS: PCP Internal Medicine; Visit Provider Registered Nurse Emergency
DX: M53.3 Sacrococcygeal disorders, not elsewhere classified (principal); M96.1 Postlaminectomy syndrome, not elsewhere classified; M47.816 Spondylosis without myelopathy or radiculopathy, lumbar region
CPT/HCPCS: 99204

== ENCOUNTER → 2023-07-26 09:31 | Outpatient (BNVA) | payer MEDICAID, SELFPAY | PROVIDERS: PCP Internal Medicine; Visit Provider Registered Nurse Emergency | DX: M53.3 Sacrococcygeal disorders, not elsewhere classified (principal); M96.1 Postlaminectomy syndrome, not elsewhere classified; M47.816 Spondylosis without myelopathy or radiculopathy, lumbar region | CPT/HCPCS: 99212 ==

== ENCOUNTER 2023-08-02 13:59 | Outpatient (REF) | payer MEDICAID, SELFPAY ==
--- NOTE | ~2023-08-02 | MM_ITS ---
EXAMINATION: MM SCREENING DIGITAL BREAST TOMOSYNTHESIS, BILATERAL CLINICAL INFORMATION: Screening. Asymptomatic. COMPARISON: Mammography: This study is compared with prior exams dating back to 2018. TECHNIQUE: Digital breast tomosynthesis is performed in both the craniocaudal and mediolateral oblique views along with computer-aided detection (CAD). Synthesized 2D images are generated from the tomosynthesis. FINDINGS: The breasts are almost entirely fatty (ACR BI-RADS breast composition Category a). There are no significant masses, abnormal calcifications, or other abnormalities. There is a biopsy tissue marker in the lobulated, well-circumscribed, benign mass of the upper outer quadrant of the left breast. MM/MM tomosynthesis screening BI IMPRESSION: No mammographic evidence of malignancy. ASSESSMENT: BI-RADS BI-RADS 2 - Benign Findings RECOMMENDATION: Routine annual mammography screening. 1 year F/U This examination should not preclude the clinical evaluation of a suspicious palpable abnormality. This patient's information was entered into a reminder system with a target due date for their next mammogram.
== END 2023-08-02 14:00 | disposition home or self-care (01) ==
LOC: HO.MAMMO 13:59
PROVIDERS: PCP Internal Medicine; Visit Provider Internal Medicine
DX: Z12.31 Encounter for screening mammogram for malignant neoplasm of breast (principal)
CPT/HCPCS: 77063; 77067

== ENCOUNTER → 2023-08-02 14:45 | Outpatient (BNV) | payer MEDICAID, SELFPAY | PROVIDERS: PCP Internal Medicine; Visit Provider Radiology Diagnostic Radiology | DX: Z12.31 Encounter for screening mammogram for malignant neoplasm of breast (principal) | CPT/HCPCS: 77063; 77067 ==

== ENCOUNTER 2023-08-14 10:58 | Outpatient (REF) | payer MEDICAID, SELFPAY ==
--- NOTE | ~2023-08-14 | XR_ITS ---
EXAMINATION: XR LUMBOSACRAL SPINE CLINICAL INFORMATION: Reason for Exam M96.1 - Postlaminectomy syndrome, not elsewhere classified COMPARISON: Lumbar spine radiographs 04/30/2021 TECHNIQUE: 5 views of the lumbar spine FINDINGS: 5 nonrib-bearing lumbar-type vertebral bodies. Vertebral body heights are maintained. Levoconvex curvature of the lumbar spine. Moderate degenerative disc disease at L4-L5 and L5-S1 with loss of disc space height and facet arthropathy progressed from prior. No pars defects. Paravertebral soft tissues are unremarkable. XR/XR lumbar spine 4V min IMPRESSION: 1. Moderate degenerative disc disease at L4-L5 and L5-S1 with loss of disc space height and facet arthropathy progressed from prior. 2. Levoconvex curvature of the lumbar spine.
== END 2023-08-14 10:59 | disposition home or self-care (01) ==
LOC: HO.XRAY 10:58
PROVIDERS: Absent Provider Registered Nurse Emergency; PCP Internal Medicine; Visit Provider Internal Medicine
DX: M96.1 Postlaminectomy syndrome, not elsewhere classified (principal); M47.816 Spondylosis without myelopathy or radiculopathy, lumbar region; R07.2 Precordial pain; E11.9 Type 2 diabetes mellitus without complications; I10 Essential (primary) hypertension
CPT/HCPCS: 72110; 93005; 99202

== ENCOUNTER 2023-08-14 10:58 | Outpatient (AMB) | payer MEDICAID, SELFPAY ==
--- NOTE | 2023-08-14 10:59 | MHC.OFFVIS ---
Intake Vital Signs 08/14/23 11:00 Height 5 ft 1 in Weight 212 lb 1.355 oz BMI 40.1 BP 146/82 H Blood Pressure Location Lt brachial Position Sitting Pulse 74 Intake Visit Reasons: NPV/Palpitations/M. Gerard Bañuelos Intake Note: NPV w/ EKG Adult High School Instructor Required: Yes Adult High School Instructor Language: Housecalls Nurse Name: Sav Govea [phone] Accompanied by: Family/Other Allergies coconut [COCONUT] Allergy (Unknown, Verified 08/14/23 11:03) RASH peanut [PEANUTS] Allergy (Unknown, Verified 08/14/23 11:03) RASH strawberry [STRAWBERRY] Allergy (Unknown, Verified 08/14/23 11:03) RASH SEAFOOD Allergy (Unknown, Uncoded 08/14/23 11:03) RASH SHELLFISH Allergy (Unknown, Uncoded 08/14/23 11:03) Unknown Medication List - Last Reconciled 08/14/23 by Armin Badillo MD acetaminophen (Tylenol Extra Strength) 500 mg PO Q6H PRN acetaminophen (Tylenol Extra Strength) 1,000 mg (2 x 500 mg) PO QID PRN baclofen 5 mg PO BID PRN bupropion HCl 150 mg PO QAM cyclobenzaprine 5 mg PO Q8H PRN 5 days cyclobenzaprine 10 mg PO Q8H PRN empagliflozin (Jardiance) 25 mg PO QAM gabapentin 100 mg PO TID hydroxyzine HCl 50 mg PO BID PRN hydroxyzine pamoate 50 mg PO BID PRN lidocaine 5% (Lidoderm) 1 patch topical DAILY PRN MDD remove after 12 hours naproxen 500 mg PO BID PRN 10 days prazosin 5 mg PO BEDTIME sertraline 150 mg PO QAM sitagliptin phosphate (Januvia) 100 mg PO QAM trazodone 50 - 100 mg PO BEDTIME PRN HPI HPI Comments History of Present Illness Details Amie is here for consultation regarding chest pains. She has history of diabetes hypertension and morbidly obese. She states she gets chest pains on the left side off and on. This can happen any time with or without exertion. Can also happen when she is lying down, sleeping stroke. There is no history of any coronary disease, myocardial infarction or cardiomyopathy. Occasionally feels heart fluttering as well. [facility] Medical History (Updated 08/14/23 @ 11:16 by Armin Badillo MD) Diabetes Sleep apnea HTN (hypertension) Depression Surgical History (Updated 08/14/23 @ 11:04 by Laquita Bañuelos) History of back surgery Family History (Updated 08/14/23 @ 11:05 by Laquita Bañuelos) Mother No problems noted. Father No problems noted. Social History Alcohol intake: never Review of Systems Const Denies chills, Denies daytime sleepiness, Denies fatigue, Denies fever(s), Denies frequent falls, Denies night sweats, Denies snoring, Denies weakness, Denies weight gain and Denies weight loss Eyes Denies loss of vision ENT Denies dizziness and Denies hearing loss Card Denies chest pain, Denies chest pain with activity, Denies syncope, Denies rapid heart rate, Denies edema, Denies claudication, Denies leg edema, Denies lightheadedness, Denies palpitations, Denies dyspnea, Denies dyspnea on exertion and Denies orthopnea Resp Denies cough, Denies excessive phlegm production, Denies dyspnea, Denies dyspnea on exertion, Denies snoring and Denies wheezing GI Denies abdominal pain, Denies hematochezia, Denies change in bowel habits, Denies change in stool character, Denies heartburn, Denies nausea and Denies vomiting Denies hematuria, Denies urinary frequency and Denies dysuria Musc Denies arthralgias, Denies muscle weakness, Denies numbness and Denies tingling Skin/Breast Denies nail changes and Denies rash Neuro Denies Abnormal speech present, Denies dizziness, Denies syncope, Denies frequent falls, Denies loss of vision, Denies memory loss, Denies numbness, Denies tingling and Denies weakness Psych Denies depression and Denies memory loss Endo Denies fatigue and Denies palpitations Aller/Immun Denies wheezing Physical Exam Vital Signs: Last Vital Signs Pulse 74 08/14/23 11:00 BP 146/82 H 08/14/23 11:00 BMI result Body Mass Index 40.1 Const General: comfortable and no acute distress Orientation/consciousness: patient oriented x3 HEENT Other: Unremarkable Head: Yes normal to inspection Neck Neck: Yes normal visual inspection Chest Chest palpation & inspection: normal inspection of the chest Resp Auscultation: clear to auscultation bilaterally Cardio Palpation: normal PMI Heart sounds: S1 normal heart sound present, S2 normal heart sound present, no gallops, no murmurs and no rubs GI Palpation (GI): Soft to palpation Back/Spine/Pelvis Other: unremarkable Skin General skin exam: no rashes or lesions noted Neuro General: patient oriented x3 Speech: No Abnormal speech present Extrem General: Yes normal to inspection Psych Mental Status: mental status grossly normal Office Procedures EKG Details: EKG with sinus rhythm at 74/Min; no significant ST-T changes and otherwise unremarkable[place] [id number], Complete Assessment & Plan Assessment & Plan (1) Precordial chest pain: Code(s): R07.2 - Precordial pain (2) Diabetes: Code(s): E11.9 - Type 2 diabetes mellitus without complications (3) HTN (hypertension): Code(s): I10 - Essential (primary) hypertension Plan Pharmacological stress test from [facility] 11/2022 shows fixed anterior defect thought to be from attenuation artifact. No clear reversible defects. Considering her ongoing symptoms and presence of risk factors, we can proceed further with the coronary CTA. Echocardiogram for cardiac function. In not entirely clear if she truly has dye allergy or not. May need preparation before CTA. Orders: Orders CT Cardiac Coronary Angio Today I25.10 - Atherosclerotic heart disease of [place] coronary artery without angina pectoris, R07.2 - Precordial pain Basic Metabolic Panel Today R07.2 - Precordial pain CA echo transthoracic complete Today R07.2 - Precordial pain Coding Level of Care Code New Pt Level 4 (14463) Diagnoses Precordial chest pain R07.2 Diabetes E11.9 HTN (hypertension) I10 CPT Codes EKG - CPT: 23315-[id number], Complete ([id number])
[2023-08-14 11:00] VITALS: BP 146/82; PULSE 74; BMI 40.1
== END 2023-08-14 11:29 | disposition home or self-care (01) ==
PROVIDERS: PCP Internal Medicine; Visit Provider Internal Medicine
DX: R07.2 Precordial pain (principal); E11.9 Type 2 diabetes mellitus without complications; I10 Essential (primary) hypertension
CPT/HCPCS: 93010; 99204

== ENCOUNTER 2023-11-15 10:34 | Outpatient (REF) | payer MEDICAID, SELFPAY ==
[2023-11-15 13:18] LABS: Estimated Average Glucose 223 mg/dL; Hemoglobin A1c % 9.4 % (<6.0)
[2023-11-15 13:36] LABS: Anion Gap 13 (12-20); Blood Urea Nitrogen 16 mg/dL (9-16); Calcium 9.5 mg/dL (8.4-10.2); Carbon Dioxide 29 mmol/L (22-29); Chloride 99 mmol/L (96-108); Cholesterol 179 mg/dL (<200); Estimated Glomerular Filt Rate > 60; Glucose Random 312 mg/dL (60-115); HDL Cholesterol 71 mg/dL (>40); LDL Cholesterol Calculated 85 mg/dL (<100); Potassium 3.7 mmol/L (3.3-5.1); Sodium 137 mmol/L (135-145); Triglycerides 116 mg/dL (<150)
[2023-11-15 14:00] LABS: Vitamin B12 914 pg/mL (200-900)
== END 2023-11-15 10:35 | disposition home or self-care (01) ==
LOC: HO.LAB 10:34
PROVIDERS: Absent Provider Internal Medicine; PCP Internal Medicine; Visit Provider Internal Medicine
DX: E11.8 Type 2 diabetes mellitus with unspecified complications (principal); R07.2 Precordial pain
CPT/HCPCS: 36415; 80048; 80061; 82607; 83036; 99212

== ENCOUNTER 2023-11-15 10:34 | Outpatient (AMB) | payer MEDICAID, SELFPAY ==
[2023-11-15 10:45] VITALS: BP 134/71; PULSE 74; RESP 16; O2SAT 98
--- NOTE | 2023-11-15 10:45 | MHC.OFFVIS ---
Intake Vital Signs 11/15/23 10:45 Height 5 ft 1 in BP 134/71 Blood Pressure Location Lt brachial Position Sitting Respiration 16 Pulse 74 Pulse Source Pulse Oximeter Pulse Oximetry (%) 98 Oxygen Delivery Method Room Air Intake Visit Reasons: Follow Up/X-Ray Results - LVM Allergies coconut [COCONUT] Allergy (Unknown, Verified 11/15/23 10:45) RASH peanut [PEANUTS] Allergy (Unknown, Verified 11/15/23 10:45) RASH strawberry [STRAWBERRY] Allergy (Unknown, Verified 11/15/23 10:45) RASH SEAFOOD Allergy (Unknown, Uncoded 08/14/23 11:03) RASH SHELLFISH Allergy (Unknown, Uncoded 08/14/23 11:03) Unknown iodine contrast Adverse Reaction (Intermediate, Uncoded 08/14/23 11:33) Hives HPI HPI Comments History of Present Illness Details Amie is a very pleasant 58-year-old female who presents the office today, accompanied by her , for follow-up and review of x-rays Lumbar spine x-ray reviewed with patient, results as per below Medical records from [facility] Neurosurgery reviewed Patient reports the pain today 04/17, worse with movement and ambulation. She continues with use of a Rollator walker. States her assists her with personal care at home Pain significantly limits patient's ability to manage the home and to do activities of daily living She has tried Tylenol, lidocaine patches and physical therapy without improvement of her symptoms. She completed physical therapy approximately 6 months ago Primary care doctor prescribes patient gabapentin which she finds is most beneficial but still her pain persists. She is currently on 100 mg 3 times daily, they have not discussed escalation of her gabapentin doses Patient tried baclofen that was prescribed at last visit but states that it did not significantly improve her pain Call was placed to patient's primary care doctor, A1c 06/21/2023 was 9.6. They have repeat A1c lab work ordered from last month but patient has yet to complete it. She states she will do that in the next few days. Patient reports that her diabetes is managed by endocrinology. She was started on long-acting insulin about 1 year ago. Her blood sugars are checked twice daily and range from 200-400. Last check this morning was 299. She is currently taking 26 units of long-acting insulin daily and is increasing by 2 units every 3 days while they tried to bring her numbers under control. She has not been to a heavy equipment mechanic but is willing to speak with one. Prior: Amie is a very pleasant 57 year old female who presents to the office today for evaluation and management of her chronic lower back pain. Patient reports she has been suffering with this pain for many years. She had surgery to her lumbar spine 11/2022 at [facility], she is not able to recall the surgeons name or details of the procedure other than it was for a pinched nerve and disc removal . She states since surgery she is no longer having pain down her right leg, but the pain to her lower back persists. She followed up with the surgeon and was told she will always be in pain . She has tried lidocaine patches with minimal relief. She takes tylenol and gabapentin which do little for her back pain. Patient states she completed PT greater than 3 months ago which helped some. She has never received injections to her back. She states the pain is constant stabbing, rated today as 8/10. Pain is worse with any movement and with bending forward. She ambulates with rollator walker. She has not found anything that relieves the pain. She denies red flag symptoms including new loss of bowel, bladder or saddle anesthesia. In terms of muscle damage condition is described as aching and stabbing. Pain is negatively impacting patient's general activity, sleep and walking. PMH significant for DM, she states her sugars have been running between 200-300's. PCP recently increased her medication. She believes her most recent A1c was around 8. [facility] Medical History (Updated 08/14/23 @ 11:16 by Armin Badillo MD) Diabetes Sleep apnea HTN (hypertension) Depression Surgical History (Updated 08/14/23 @ 11:04 by Laquita Bañuelos) History of back surgery Family History (Updated 08/14/23 @ 11:05 by Laquita Bañuelos) Mother No problems noted. Father No problems noted. Social History Alcohol intake: never Review of Systems Const All systems reviewed & are unremarkable except as noted in HPI and below Physical Exam Vital Signs: Last Vital Signs Pulse 74 11/15/23 10:45 Resp 16 11/15/23 10:45 BP 134/71 11/15/23 10:45 Pulse Ox 98 11/15/23 10:45 Oxygen Delivery Method Room Air 11/15/23 10:45 General: awake, alert, oriented. Answers questions appropriately. Fully engaged in examination. Skin: warm, dry, intact HEENT: Normocephalic. Hearing intact. Cardiac: External chest normal in appearance. Respiratory: No cough, audible wheezing or stridor. Abdomen: without gross distension. MS: No obvious swelling or deformities. Able to transition from sit to stand unassisted. Ambulates with use of rollator walker limited ROM with flexion to 40 degrees, extension 10 degrees. pain worse with flexion. Tenderness to palpation bilateral paraspinal muscles SLR with and without dorsiflexion negative bilaterally Gaenslen positive bilaterally Thigh thrust positive bilaterally SIJ compression positive bilaterally Facet loading positive bilaterally Neurological: Oriented to person, place, time and situation. Thought process intact. Psychiatric: Appropriate mood and affect. Good judgment and insight. Results Reviewed Results Reviewed: 08/14/2023 XR/XR lumbar spine 4V min FINDINGS: 5 nonrib-bearing lumbar-type vertebral bodies. Vertebral body heights are maintained. Levoconvex curvature of the lumbar spine. Moderate degenerative disc disease at L4-L5 and L5-S1 with loss of disc space height and facet arthropathy progressed from prior. No pars defects. Paravertebral soft tissues are unremarkable. IMPRESSION: 1. Moderate degenerative disc disease at L4-L5 and L5-S1 with loss of disc space height and facet arthropathy progressed from prior. 2. Levoconvex curvature of the lumbar spine. 01/11/2023 Assessment & Plan Assessment & Plan (1) Sacroiliac joint dysfunction of both sides: Code(s): M53.3 - Sacrococcygeal disorders, not elsewhere classified (2) Post laminectomy syndrome: Code(s): M96.1 - Postlaminectomy syndrome, not elsewhere classified (3) Lumbar spondylosis: Code(s): M47.816 - Spondylosis without myelopathy or radiculopathy, lumbar region (4) Diabetes: Code(s): E11.9 - Type 2 diabetes mellitus without complications Plan Amie is a very pleasant 58 year old female who presented to the office today for follow-up and review of recent lumbar spine x-ray. History, physical exam and provocative testing consistent with lumbar spondylosis, bilateral SIJ dysfunction and post laminectomy syndrome. Will increase gabapentin to 200 mg p.o. t.i.d., patient instructed on cautions for use. Discussed options for treatment including diagnostic interventional testing, epidural steroid injections, peripheral nerve stimulation with Sprint, RFA and more permanent neuromodulation. Lengthy conversation with patient today regarding interventional options for treatment. Given most recent A1c was 9.6 options are limited d/t increased risks. Referral placed for dietitian/nutrition. Follow-up with endocrinology Complete ordered blood work at [facility] to review current A1c All questions and concerns have been answered and patient agrees with the plan. Follow up in 1 month to discuss gabapentin and potential dose adjustment, follow-up sooner if needed Orders: Referrals [employer] Referral E11.9 - Type 2 diabetes mellitus without complications Medications: New gabapentin dose increase, discontinue previous Gabapentin dose. May cause drowsiness, no driving while taking this medication. 200 mg (2 x 100 mg) PO TID 30 days 180 caps 1RF Coding Level of Care Code Est Pt Level 4 (09511) Diagnoses Sacroiliac joint dysfunction of both sides M53.3 Post laminectomy syndrome M96.1 Lumbar spondylosis M47.816 Diabetes E11.9
== END 2023-11-15 11:27 | disposition home or self-care (01) ==
PROVIDERS: PCP Internal Medicine; Visit Provider Registered Nurse Emergency
DX: M53.3 Sacrococcygeal disorders, not elsewhere classified (principal); M96.1 Postlaminectomy syndrome, not elsewhere classified; M47.816 Spondylosis without myelopathy or radiculopathy, lumbar region; E11.9 Type 2 diabetes mellitus without complications
CPT/HCPCS: 99214

== ENCOUNTER 2024-01-03 10:06 | Outpatient (REF) | payer MEDICAID, SELFPAY ==
[2024-01-03 12:07] LABS: Alanine Aminotransferase 12 U/L (0-31); Albumin Level 4.3 g/dL (3.5-5.0); Alkaline Phosphatase 121 U/L (39-117); Aspartate Amino Transferase 11 U/L (5-31); Bilirubin Direct 0.2 mg/dL (0.0-0.5); Bilirubin Total 0.5 mg/dL (0.0-1.0); Total Protein 7.9 g/dL (6.5-8.0)
[2024-01-03 12:21] LABS: Creatinine Urine 90.81 mg/dL; Microalbumin Urine < 5.0 mg/L
[2024-01-06 10:58] LABS: TS Negative Control Passed; TS Panel A 0; TS Panel B 0; TS Positive Control Passed; TSpotTB Negative (Negative)
== END 2024-01-03 10:07 | disposition home or self-care (01) ==
LOC: HO.HHCL 10:06
PROVIDERS: Visit Provider Internal Medicine
DX: E11.8 Type 2 diabetes mellitus with unspecified complications (principal)
CPT/HCPCS: 36415; 80076; 82043; 82570; 86481

== ENCOUNTER 2024-04-09 08:17 | Outpatient (REF) | payer MEDICAID, SELFPAY ==
[2024-04-09 09:55] LABS: Anion Gap 12 (12-20); Blood Urea Nitrogen 15 mg/dL (9-16); Calcium 9.4 mg/dL (8.4-10.2); Carbon Dioxide 32 mmol/L (22-29); Chloride 102 mmol/L (96-108); Estimated Glomerular Filt Rate 58; Glucose Random 114 mg/dL (60-115); Potassium 3.3 mmol/L (3.3-5.1); Sodium 143 mmol/L (135-145)
== END 2024-04-09 08:18 | disposition home or self-care (01) ==
LOC: HO.LAB 08:17
PROVIDERS: PCP Internal Medicine; Visit Provider Internal Medicine
DX: I10 Essential (primary) hypertension (principal); R07.2 Precordial pain
CPT/HCPCS: 36415; 80048

== ENCOUNTER 2024-05-02 12:39 | Outpatient (AMB) | payer MEDICAID, SELFPAY ==
--- NOTE | 2024-05-02 12:49 | A.OFFVIS_ITS ---
Vital Signs 05/02/24 12:50 Height 5 ft 1 in Weight 212 lb BMI 40.1 BP 120/62 Blood Pressure Location Lt brachial Position Sitting Pulse 76 Pulse Source Pulse Oximeter Intake Visit Reasons: Follow up CTA Nuclear Equipment Research Engineer Required: Yes Nuclear Equipment Research Engineer Name: FLORENCIO [id number] Allergies coconut [COCONUT] Allergy (Unknown, Verified 11/15/23 10:45) RASH peanut [PEANUTS] Allergy (Unknown, Verified 11/15/23 10:45) RASH strawberry [STRAWBERRY] Allergy (Unknown, Verified 11/15/23 10:45) RASH SEAFOOD Allergy (Unknown, Uncoded 08/14/23 11:03) RASH SHELLFISH Allergy (Unknown, Uncoded 08/14/23 11:03) Unknown iodine contrast Adverse Reaction (Intermediate, Uncoded 08/14/23 11:33) Hives Medication List - Last Reconciled 05/02/24 by Katie Frederick NP acetaminophen (Tylenol Extra Strength) 1,000 mg (2 x 500 mg) PO QID PRN baclofen 5 mg PO BID PRN bupropion HCl XL 150 mg PO QAM cyclobenzaprine 10 mg PO Q8H PRN diphenhydramine HCl (Benadryl Allergy) 25 mg PO DIRECTED empagliflozin (Jardiance) 25 mg PO QAM famotidine (Pepcid) 20 mg PO DIRECTED gabapentin 200 mg (2 x 100 mg) PO TID hydroxyzine pamoate 50 mg PO BID PRN lidocaine 5% (Lidoderm) 1 patch topical DAILY PRN MDD remove after 12 hours naproxen 500 mg PO BID PRN 10 days prazosin 5 mg PO BEDTIME prednisone 20 mg PO DIRECTED sertraline 150 mg PO QAM sitagliptin phosphate (Januvia) 100 mg PO QAM trazodone 50 - 100 mg PO BEDTIME PRN HPI Comments Details: 58-year-old female presents today for a follow-up after coronary CTA. She has not had her echocardiogram yet. She reports she sometimes still has chest pains. She struggles to describe the pain. She states it is mostly pressure like and it can happen at rest or with exertion. She has a history of obesity, diabetes, sleep apnea, and hypertension. [facility] Medical History CAD (coronary artery disease) Diabetes Sleep apnea HTN (hypertension) Depression Surgical History History of back surgery Family History Mother No problems noted. Father No problems noted. Social History Alcohol intake: never Physical Exam Vital Signs: Last Vital Signs Pulse 76 05/02/24 12:50 BP 120/62 05/02/24 12:50 BMI result Body Mass Index 40.1 Results Reviewed Results Reviewed: CTA 04/18/2024 Coronary Artery Angiography: Dominance: Right. Image numbers below refer to series 404 unless otherwise noted. Left Main: The ostium is normally positioned. The left main coronary artery is normal. Left Anterior Descending: There is a small calcification in the proximal LAD associated with minimal less than 25% stenosis. First diagonal is a medium-sized branch seen on image 71 with no significant plaque or stenosis. Rest of the LAD is unremarkable. Distal LAD wraps around the apex. Left Circumflex Artery: It is a relatively small vessel which is not well seen, no definite plaque or stenosis. Ramus Intermedius: A relatively large branch with no significant plaque or stenosis. Right Coronary Artery: The ostium is normally positioned. No significant plaque or stenosis. Distal RCA supplies a small PDA and a posterior lateral ventricular branch. IMPRESSION: Images are mildly to moderately degraded by body habitus. No definite hemodynamically significant coronary artery stenosis. Small calcified plaque in the proximal LAD. Assessment & Plan Assessment & Plan (1) Precordial chest pain: Code(s): R07.2 - Precordial pain Category: Medical (2) CAD (coronary artery disease): Code(s): I25.10 - Atherosclerotic heart disease of [place] coronary artery without angina pectoris Category: Medical (3) HTN (hypertension): Code(s): I10 - Essential (primary) hypertension Category: Medical (4) Diabetes: Code(s): E11.9 - Type 2 diabetes mellitus without complications Category: Medical Plan CTA showing mild CAD. Small calcified plaque in the proximal LAD. Last LDL on 11/15/23 was 85. Acceptable level. Advised heart healthy diet and exercise as tolerated. Advised tight control over blood glucose levels. Last A1C was 9.4. Blood pressure within range. ED care if needed Coding Level of Care Code New Pt Level 4 (39628) Diagnoses Precordial chest pain R07.2 CAD (coronary artery disease) I25.10 HTN (hypertension) I10 Diabetes E11.9
[2024-05-02 12:50] VITALS: BP 120/62; PULSE 76; BMI 40.1
== END 2024-05-02 13:14 | disposition home or self-care (01) ==
PROVIDERS: PCP Internal Medicine; Visit Provider Nurse Practitioner
DX: R07.2 Precordial pain (principal); I25.10 Atherosclerotic heart disease of native coronary artery without angina pectoris; I10 Essential (primary) hypertension; E11.9 Type 2 diabetes mellitus without complications
CPT/HCPCS: 99204

== ENCOUNTER → 2024-05-02 12:39 | Outpatient (BNVA) | payer MEDICAID, SELFPAY | PROVIDERS: PCP Internal Medicine; Visit Provider Nurse Practitioner | DX: R07.2 Precordial pain (principal); I25.10 Atherosclerotic heart disease of native coronary artery without angina pectoris; I10 Essential (primary) hypertension; E11.9 Type 2 diabetes mellitus without complications | CPT/HCPCS: 99212 ==

== ENCOUNTER → 2024-08-14 12:43 | Outpatient (REF) | payer MEDICAID, SELFPAY ==
--- NOTE | 2024-08-14 12:46 | CA_ITS ---
Transthoracic Echocardiogram Patient (Last, First, Middle): Amie Tejada, Gender: Female Date of : 1965 Age: 58 Procedure Date: 08/14/2024 Procedure Type: Transthoracic Echocardiogram Location: OP Height: 165.1 cm Weight: 92.99 kg BSA: 2.00 m2 Heart Rate: bpm BP: 130 / 80 mmHg Crossing Gateman: Referring MD: Bhavana Gomez MD Computer Training Specialist: John Conway MD Symptoms: I.10 HTN Study Quality: Good ECG Rhythm: Sinus Conclusions: - 1. Normal LV ejection fraction of 60 65% with grade 1 diastolic dysfunction 2. Trivial aortic regurgitation 3. Normal RV systolic pressure 4. No gross pericardial effusion Findings Left Ventricle Normal left ventricular size, thickness, and systolic function. The visually estimated ejection fraction is between 60-65%. Spectral Doppler is indicative of an impaired relaxation filling pattern. E/E prime ratio is <8, consistent with normal filling pressures. Evidence suggests grade I (mild) diastolic dysfunction. Right Ventricle Normal right ventricular cavity size and systolic function. Atria Both atria are normal in size. Interatrial shunt cannot be excluded. Aortic Valve The aortic valve structure and function is likely normal. There is no aortic valve stenosis. There is trace (trivial) aortic valve regurgitation. Mitral Valve Normal mitral valve structure and function. There is no mitral valve regurgitation. There is no mitral valve stenosis. Pulmonic Valve The pulmonic valve was not well visualized. Tricuspid Valve Likely normal tricuspid valve structure and function. There is trace tricuspid valve regurgitation. The right ventricular systolic pressure is normal. The right ventricular systolic pressure is 20 mmHg. Normal right atrial pressure. There is no evidence of pulmonary hypertension. Great Vessels All visible segments of the aorta are normal in size. The pulmonary artery was not well visualized. There is no dilatation of the ascending aorta measuring 3.40 cm. Venous The inferior vena cava is normal in size and collapses greater than 50% with inspiration. Pericardium/Pleural There is no evidence of pericardial effusion. Prior Study Comparison No prior study available for comparison. Measurements 2D Linear Measurements IVSd: 1.10 0.6-0.9/0.6-1.0 cm LVIDd: 4.13 3.9-5.3/4.2-5.9 cm LVIDd Index: 2.07 2.4-3.2/2.2-3.1 cm/m2 LVIDs: 2.64 2.0-3.6 cm LVPWd: 1.06 0.7-1.1 cm Ao Root: 3.00 2.1-3.5 cm LA Diam: 4.00 2.7-3.8/3.0-4.0 cm LAIDs Index: 2.00 1.5-2.3 cm/m2 LV Mass: 185.55 67-162/88-224 g LV Mass Index: 92.77 43-95/49-115 g/m2 LVOT Diam: 2.00 3.0+(-)1.3 cm Mitral Valve MV Pk E: 0.67 MV PK A: 0.96 MV Decel Time: 343.00 E/A: 0.70 E'Lateral: 12.30 E'Medial: 4.90 E/E' Med: 13.60 E/E' Lat: 5.40 PHT: 101.00 MVA PHT: 2.18 Decel Rincon: 1.94 Aortic Valve AoV Pk Vito: 1.45 AoV Mn Vito: 0.91 AoV VTI: 0.30 AoV Pk Grad: 8.00 Aov Mn Grad: 4.00 CONCETTA Cont.VTI: 2.60 LVOT LVOT Pk Vito: 1.14 LVOT Mn Vito: 0.75 LVOT VTI: 0.25 LVOT Pk Grad: 5.00 LVOT Mn Grad: 3.00 LVOT Diam: 2.00 LVOT Area: 3.14 Diastolic Function MV Pk E: 0.67 MV Pk A: 0.96 E/A: 0.70 E'Medial: 4.90 E/E' Med: 13.60 E' Laterial: 12.30 E/E' Lat: 5.40 Right Ventricle TAPSE (mm): 23.00 TVS' Vito: 10.00 Tricuspid Valve TR Pk Vito: 2.04 TR Pk Grad: 17.00 RA Press: 3.00 RVSP: 20.00 Great Vessels Aorta Ao Root-2D: 3.00 2.0-3.7 cm Ao Asc: 3.40 2.1-3.4 cm Pulmonary Valve PV Pk Vito: 1.15 Peak PV Grad: 5.00 Updated in Other Vendor System with Status of Final John Conway MD electronically signed on 08/15/2024 12:14:54 PM with status of Final
== END ==
LOC: HO.CARD 12:43
PROVIDERS: PCP Internal Medicine; Visit Provider Internal Medicine
DX: I10 Essential (primary) hypertension (principal)
CPT/HCPCS: 93306

== ENCOUNTER → 2024-08-14 12:46 | Outpatient (BNV) | payer MEDICAID, SELFPAY | PROVIDERS: PCP Internal Medicine; Visit Provider Internal Medicine Cardiovascular Disease | DX: I35.1 Nonrheumatic aortic (valve) insufficiency (principal) | CPT/HCPCS: 93306 ==

== ENCOUNTER 2024-11-18 07:43 | Outpatient (AMB) | payer MEDICAID, SELFPAY ==
[2024-11-18 08:19] VITALS: BP 130/72; PULSE 78; BMI 37.0
--- NOTE | 2024-11-18 08:19 | MHC.OFFVIS ---
Vital Signs 11/18/24 08:19 Height 5 ft 1 in Weight 195 lb 12.328 oz BMI 37.0 BP 130/72 Blood Pressure Location Lt brachial Position Sitting Pulse 78 Pulse Source Monitor Intake Visit Reasons: r/s 10/31/23 6 mos followup Contract Negotiation Manager Required: Yes Contract Negotiation Manager Language: On Air Personality Name: voice chaney [phone] Jewel Lathe Operator: Jewel Lathe Operator Present Allergies coconut [COCONUT] Allergy (Unknown, Verified 11/18/24 08:21) RASH peanut [PEANUTS] Allergy (Unknown, Verified 11/18/24 08:21) RASH strawberry [STRAWBERRY] Allergy (Unknown, Verified 11/18/24 08:21) RASH SEAFOOD Allergy (Unknown, Uncoded 11/18/24 08:21) RASH SHELLFISH Allergy (Unknown, Uncoded 11/18/24 08:21) Unknown iodine contrast Adverse Reaction (Intermediate, Uncoded 11/18/24 08:21) Hives Medication List - Last Reconciled 11/18/24 by CALDERON MillerC acetaminophen (Tylenol Extra Strength) 1,000 mg (2 x 500 mg) PO QID PRN baclofen 5 mg PO BID PRN bupropion HCl XL 150 mg PO QAM cyclobenzaprine 10 mg PO Q8H PRN diphenhydramine HCl (Benadryl Allergy) 25 mg PO DIRECTED empagliflozin (Jardiance) 25 mg PO QAM famotidine (Pepcid) 20 mg PO DIRECTED gabapentin 200 mg (2 x 100 mg) PO TID hydroxyzine pamoate 50 mg PO BID PRN levothyroxine 50 mcg PO QAM lidocaine 5% (Lidoderm) 1 patch topical DAILY PRN MDD remove after 12 hours losartan 100 mg PO QAM prazosin 5 mg PO BEDTIME prednisone 20 mg PO DIRECTED sertraline 150 mg PO QAM sitagliptin phosphate (Januvia) 100 mg PO QAM trazodone 50 - 100 mg PO BEDTIME PRN HPI HPI r/s 10/31/23 6 mos followup: Details: Amie is a 59-year-old female with past medical history of morbid obesity, hypertension, diabetes, sleep apnea who previously reported chest discomfort and has under gone cardiac evaluation. A CTA of the coronaries done 04/18/2024 showed no hemodynamically significant stenosis. She now presents for follow-up. Today she reports that she has been doing well since her last visit here in April. She denies having any recent issues with chest discomfort. No concerning shortness of breath, PND, orthopnea or edema. No lightheadedness, palpitations, presyncope, syncope. She ambulates with a walker due to back discomfort. She tells me her diabetes is controlled. Taking meds as directed. is present. Certified drum builder used [facility] Medical History (Updated 11/18/24 @ 10:21 by MILAN Miller) CAD (coronary artery disease) Diabetes Sleep apnea HTN (hypertension) Depression Surgical History History of back surgery Family History Mother No problems noted. Father No problems noted. Social History Alcohol intake: never Review of Systems Const All systems reviewed & are unremarkable except as noted in HPI and below ENT Denies dizziness Card Denies chest pain, Denies chest pain at rest, Denies chest pain with activity, Denies rapid heart rate, Denies pedal edema, Denies edema, Denies leg edema, Denies lightheadedness, Denies palpitations, Denies dyspnea, Denies dyspnea on exertion and Denies orthopnea Resp Denies cough, Denies dyspnea and Denies dyspnea on exertion GI Denies hematochezia and Denies change in stool character Musc Denies abnormal gait, Denies limited range of motion, Denies muscle cramps, Denies muscle weakness, Denies numbness, Denies radiating pain into limb, Denies stiffness and Denies tingling Neuro Denies abnormal gait, Denies dizziness, Denies numbness and Denies tingling Endo Denies palpitations Physical Exam Vital Signs: Last Vital Signs Pulse 78 11/18/24 08:19 BP 130/72 11/18/24 08:19 BMI result Body Mass Index 37.0 Const General: cooperative, healthy appearing, comfortable and no acute distress Orientation/consciousness: patient oriented x3 Neck Neck: Yes normal visual inspection and Yes no JVD Carotids: normal carotid upstroke Resp Effort & Inspection: normal respiratory effort Auscultation: clear to auscultation bilaterally, no crackles, no rales, no rhonchi and no wheezes Cardio Jugular venous distension: no JVD Rate: regular rate Rhythm: regular rhythm Heart sounds: S1 normal heart sound present, S2 normal heart sound present, no murmurs and no rubs Neuro General: patient oriented x3 Extrem General: Yes normal to inspection, No no pedal edema and No calf tenderness Psych Appearance: grossly normal Mental Status: mental status grossly normal Speech and movement: Normal speech and movement present Office Procedures EKG Details: Today, read by me, SR with 1st degree avb, PVCs ( 2), cant exclude prior anterior infarct, rate 78, QTc 442ms [id number], Complete Assessment & Plan Assessment & Plan (1) CAD (coronary artery disease): Code(s): I25.10 - Atherosclerotic heart disease of [place] coronary artery without angina pectoris Category: Medical Plan: Prior reports of chest discomfort. Nuclear stress test done 11/22/2022 at [facility] showed a perfusion defect, likely attenuation artifact. A CTA of the coronary arteries was done 04/18/2024 showing proximal LAD minimal stenosis, less than 25%, no hemodynamically significant stenosis. Echocardiogram done 08/14/2024 showed EF 60-65%, grade 1 diastolic dysfunction, trivial aortic regurgitation. At this time she has no anginal sounding symptoms. EKG done today showing sinus rhythm with first-degree AV block, 2 PVCs, can not exclude prior anterior infarct, rate 78. The need for ongoing cardiac risk factor modification was reviewed. Hemoglobin A1c goal less than 7. [place] blood pressure goal less than 130/85, LDL goal less than 70. Benefits a weight loss and increasing physical activity reviewed with her. Signs and symptoms of angina discussed. Cardiology follow-up in 1 year, sooner if needed (2) HTN (hypertension): Code(s): I10 - Essential (primary) hypertension Category: Medical Plan: Blood pressure controlled at this time. Continue on losartan. (3) Diabetes: Code(s): E11.9 - Type 2 diabetes mellitus without complications Category: Medical Plan: Hemoglobin A1c goal less than 7. Followed by her PCP. (4) HLD (hyperlipidemia): Code(s): E78.5 - Hyperlipidemia, unspecified Category: Medical Plan: [place] LDL goal less than 70 in patient with diabetes and minimal CAD. Labs done 11/15/2023 showed LDL 85. She is not on statin for unclear reason. She does not recall having any side effects with statin use in the past. Will start on atorvastatin at 20 mg daily. Will check a fasting lipid and liver profile in 6-8 weeks. Plan Time spent on chart review, documentation, interview and assessment Orders: Orders Lipid Panel 6 Weeks E78.5 - Hyperlipidemia, unspecified, I25.10 - Atherosclerotic heart disease of [place] coronary artery without angina pectoris Liver Panel 6 Weeks E78.5 - Hyperlipidemia, unspecified Medications: New atorvastatin 20 mg PO BEDTIME 30 tabs 5RF Coding Level of Care Code Est Pt Level 4 (89303) Complex EM visit Add On G2211 Diagnoses CAD (coronary artery disease) I25.10 HTN (hypertension) I10 Diabetes E11.9 HLD (hyperlipidemia) E78.5 CPT Codes EKG - CPT: [id number], Complete ([id number]) Time Spent (min) 30
== END 2024-11-18 08:48 | disposition home or self-care (01) ==
PROVIDERS: PCP Internal Medicine; Visit Provider Nurse Practitioner Family
DX: I25.10 Atherosclerotic heart disease of native coronary artery without angina pectoris (principal); I10 Essential (primary) hypertension; E11.9 Type 2 diabetes mellitus without complications; E78.5 Hyperlipidemia, unspecified
CPT/HCPCS: 93010; 99214

== ENCOUNTER → 2024-11-18 07:43 | Outpatient (BNVA) | payer MEDICAID, SELFPAY | PROVIDERS: PCP Internal Medicine; Visit Provider Nurse Practitioner Family | DX: I25.10 Atherosclerotic heart disease of native coronary artery without angina pectoris (principal); I10 Essential (primary) hypertension; E66.01 Morbid (severe) obesity due to excess calories; E11.9 Type 2 diabetes mellitus without complications; E78.5 Hyperlipidemia, unspecified; Z68.37 Body mass index [BMI] 37.0-37.9, adult | CPT/HCPCS: 93005; 99212 ==

== ENCOUNTER 2025-02-12 08:05 | Outpatient (REF) | payer MEDICAID, SELFPAY ==
--- OUTSIDE RECORDS SUMMARY | 2025-02-12 08:11 | XMS_ITS | Encounter Summary ---
Author Organization [employer] Address [address] [place] [address] [address] [place] [address] Care Team Providers Care Steel Checker Name Role Phone Bhavana Gomez MD Primary Care Provider + Twan Trujillo PharmD Unavailable [phone] Reason for Visit * Reason Comments Med Refill Encounter Details Date Type Department Care Team ([facility] Contact Info) Description 12/19/2022 Refill [facility] MEDICINE [address] [place] [address] [phone] Bhavana Gomez MD [address] [place], [place] [phone] Social History Tobacco Use Types Packs/Day Years Used Date Smoking Tobacco: Never Smokeless Tobacco: Never Alcohol Use Standard Drinks/Week Comments Never 0 (1 standard drink = 0.6 oz pur e alcohol) Depression Answer Date Recorded Patient Health Questionnaire-2 Score 0 10/25/2022 Comments Unknown Sex and Gender Information Value Date Recorded Sex Assigned at Female 08/08/2022 10:32 AM EDT Legal Sex Female 10:32 AM EDT Gender Identity Female 08/08/2022 10:32 AM EDT Sexual Orientation Straight 08/08/2022 10 :32 AM EDT documented as of this encounter Plan of Treatment Upcoming Encounters Date Type Department Care Team ([facility] Contact Info) Description 02/26/2025 10:00 AM EDT Office Visit [facility] MEDICINE [address] [place], [place] [phone] Bhavana Gomez MD [address] [place], [place] [phone] 03/17/2025 2:30 PM EDT Office Visit [facility] ADULT DENTAL [address] [place], [place] [phone] Ronnell Dunlap DDS [address] [place] [address] 06/16/2025 1:00 PM EDT Office Visit [facility] ADULT DENTAL [address] [place], [place] [phone] Crystal Gold documented as of this encounter Visit Diagnoses Not on filedocumented in this encounter Care Teams Steel Checker Relationship Specialty Start Date End Date Bhavana Gomez MD [address] [place] [address] [phone] PCP - General Family Medicine 09/28/17 Twan Trujillo PharmD [address] [place] [address] [phone] Pharmacist Internal Medicine 09/12/23 documented as of this encounter
--- OUTSIDE RECORDS SUMMARY | 2025-02-12 08:11 | XMS_ITS | Encounter Summary ---
Author Organization [employer] Address [address] [facility] [address] [place] [address] Care Team Providers Care Demonstrator Electric [employer] Appliances Name Role Phone Bhavana Gomez MD Primary Care Provider + Twan Trujillo PharmD Unavailable Reason for Visit * Reason Comments Filling Encounter Details Date Type Department Care Team ([facility] Contact Info) Description 02/11/2025 1:30 PM EDT Office Visit [facility] ADULT DENTAL [address] [place], [place] [phone] Ronnell Dunlap DDS [address] [place], [place] [phone] Dental caries (Primary Dx) Social History Tobacco Use Types Packs/Day Years Used Date Smoking Tobacco: Never Passive Smoke Exposure: Never Smokeless Tobacco: Never Alcohol Use Standard Drinks/Week Comments Never 0 (1 standard drink = 0.6 oz pur e alcohol) Housing Stability Answer Date Recorded What is your housing situation today? I have erica ceron 03/25/[address] you li ve. Do you have problems with any of the following? None of the above 03/25/2024 Food Insecurity Answer Date Recorded Within the past 12 months, y ou worried that your food would run out before you got money to buy more: Never True 03/25/2024 Within the past 12 months,th e food you bought just didn't last and you didn't have enough money to get more: Never True Transportation Answer Date Recorded In the past 12 months, has l ack of transportation kept you from medical appts, meetings, work or from getting things needed for daily living? No 03/25/2024 Utilities Answer Date Recorded In the past 12 months, has t he electric, gas, oil or water company threatened to shut off services in your home? No 03/25/2024 Depression Answer Date Recorded Patient Health Questionnaire-2 Score 0 10/25/2022 Internet Access Answer Date Recorded Internet Access Q1 No 06/10/2024 Internet Access Q2 Not on file 06/10/2024 Comments No Sex and Gender Information Value Date Recorded Sex Assigned at Female 08/08/2022 10:32 AM EDT Legal Sex Female 10:32 AM EDT Gender Identity Female 08/08/2022 10:32 AM EDT Sexual Orientation Straight 08/08/2022 10 :32 AM EDT documented as of this encounter Last Filed Vital Signs Vital Sign Reading Time Taken Comments Blood Pressure 128/76 02/11/2025 1:25 PM EDT Pulse - - Temperature - - Respiratory Rate - - Oxygen Saturation - - Inhaled Oxygen Concentration - - Weight - - Height - - Body Mass Index - - documented in this encounter Progress Notes * Ronnell Dunlap DDS - 02/11/2025 1:30 PM EDT Patient ID: Amie Rivero is a 59 y.o. female. Time Out: Timeout Date: 02/11/25, Timeout Time: 1307 (composite on tooth #4 , 5) Location: [facility] Tooth: Maxilla, #4, and #5 Procedure: X-rays and Mu-Ism Verified the above with patient, assistant pressman, and provider. Confirmed via patient's chart, intraorally and by radiographs. Construction Plant Operator: not applicable Chief Complaint Patient presents with Filling Medical Hx: Vitals: Blood pressure 128/76. Medications, Med Hx reviewed with patient and updated in chart. Consent Obtained: The risks, benefits, indications, potential complications, and alternatives were explained to the patient and informed consent was obtained with good understanding. Treatment Provided: Dental procedures in this visit D2392 - RESIN-BASED COMPOSITE - 2 SURF, POSTERIOR 5 DO (Completed) Service provider: Ronnell Dunlap DDS Billing provider: Ronnell Dunlap DDS D2392 - RESIN-BASED COMPOSITE - 2 SURF, POSTERIOR 4 MO (Completed) Service provider: Ronnell Dunlap DDS Billing provider: Ronnell Dunlap DDS D9450 - CASE PRESENTATION, DETAILED AND EXTENSIVE TREATMENT PLANNING (Completed) Service provider: Ronnell Dunlap DDS Billing provider: Ronnell Dunlap DDS D0230 - INTRAORAL - PERIAPICAL EACH ADDITIONAL RADIOGRAPHIC IMAGE (Completed) Service provider: Ronnell Dunlap DDS Billing provider: Ronnell Dunlap DDS Diagnosis: Caries Topical: 20% Benzocaine Anesthesia: 2% Lidocaine (Xylocaine) w/ 1:100,000 epinephrine Number of Cartridges: .50 Injection Type: Buccal infiltration Confirmed profound anesthesia. Isolation: high speed suction, cotton rolls, and cheek guard Prep: All caries removed and Preparation finalized Matrix: Sectional Matrix and wedge Etch: 37% Phosphoric Acid Etch Desensitizer: Gluma Liner/Base: None Hicks: I-Hicks Mu-Ism Material: Paradigm Composite Shade: A3 Polished. Occlusion & contacts verified. Patient satisfied with comfort and esthetics. Patient tolerated procedure well. Post-operative instructions were given. Patient departed alert, oriented, and in stable condition. NV: Cont ajith Project Builder: Sirena Souza Dentist: Ronnell Dunlap DDS documented in this encounter Plan of Treatment Upcoming Encounters Date Type Department Care Team (Late st Contact Info) Description 02/26/2025 10:00 AM EDT Office Visit [facility] MEDICINE [address] [place] [address] Bhavana Gomez MD [address] [place] [address] 03/17/2025 2:30 PM EDT Office Visit [facility] ADULT DENTAL [address] [place] [address] Ronnell Dunlap DDS [address] [place], [place] [phone] 06/16/2025 1:00 PM EDT Office Visit [facility] ADULT DENTAL [address] [place] [address] Crystal Gold documented as of this encounter Goals Goal Patient Goal Type Associated Problems Recent Progress Patient-Stated? Author Blood Pressure < 140/90 Blood Pressure 128/76(2024 1:25 PM EDT) No Twan Trujillo PharmD Hemoglobin A1c < 7 Result Component 6.8( 10:31 AM EDT) No Twan Trujillo PharmD documented as of this encounter Procedures Procedure Name Priority Date/Time Associated Diagnosis Comments 4 MO RESIN-BASED COMPOSITE - 2 SURF, POSTERIOR Routine 02/11/2025 1:30 PM EDT 5 DO RESIN-BASED COMPOSITE - 2 SURF, POSTERIOR Routine 02/11/2025 1:30 PM EDT INTRAORAL - PERIAPICAL EACH ADDITIONAL RADIOGRAPHIC IMAGE Routine 02/11/2025 1:30 PM EDT CASE PRESENTATION, DETAILED AND EXTENSIVE TREATMENT PLANNING Routine 02/11/2025 1:30 PM EDT documented in this encounter Visit Diagnoses Diagnosis Dental caries- Primary Unspecified dental caries documented in this encounter Care Teams Demonstrator Electric Gas Appliances Relationship Specialty Start Date End Date Bhavana Gomez MD [address] [place] [address] PCP - General Family Medicine 09/28/17 Twan Trujillo PharmD [address] [place] [phone] Pharmacist Internal Medicine 09/12/23 documented as of this encounter
--- OUTSIDE RECORDS SUMMARY | 2025-02-12 08:12 | XMS_ITS | Clinical Summary ---
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 019 Active albuterol (Ventolin HFA) 108 (90 Base) MCG/ACT inhaler Inhale 2 puffs every 4 (four) hours if needed. 022 Active hydrOXYzine pamoate (Vistaril) 50 MG capsule Take 1 capsule by mouth if needed in the morning and at bedtime for anxiety or sleep. 023 Active buPROPion XL (Wellbutrin XL) 150 MG 24 hr tablet Take 150 mg by mouth in the morning. 023 Active Blood Pressure Monitor kitIndications:Pr imary hypertension Use to check blood pressure daily as directed 1 kit 024 Active lidocaine (Lidoderm) 5 % patch APPLY 1 PATCH TOPICALLY TO SKIN, LEAVE ON FOR 12 HOURS AND OFF FOR 12 HOURS DIRECTED 15 patch 2 Active traZODone (Desyrel) 50 MG tablet Take 50 mg by mouth if needed at bedtime for sleep. 024 Active hydroCHLOROthiazi de (HYDRODiuril) 25 MG tablet TAKE 1 TABLET BY MOUTH EVERY MORNING 90 tablet 3 024 Active losartan (Cozaar) 100 MG tablet TAKE 1 TABLET BY MOUTH EVERY MORNING 90 tablet 3 024 Active amLODIPine (Norvasc) 10 MG tabletIndications :Hypertension, unspecified type TAKE 1 TABLET BY MOUTH AT BEDTIME 90 tablet 3 024 Active montelukast (Singulair) 10 MG tabletIndications :Mild intermittent asthma without complication TAKE 1 TABLET BY MOUTH AT BEDTIME NEEDED 90 tablet 3 024 Active prazosin (Minipress) 5 MG capsule TAKE 1 CAPSULE BY MOUTH AT BEDTIME FOR NIGHTMARES Active sertraline (Zoloft) 50 MG tablet Take 75 mg by mouth in the morning. Active Continuous Glucose Mud Logger (FreeStyle Dunia 2 Logan) deviceIndications :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) Scan sensor every 8 hours 1 each Active glucose blood (FreeStyle Precision Rosalio Test) test stripIndications: 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) Use to test blood sugar up to 3 times daily as needed or if sensor failure 100 each 11 024 2024 Active atorvastatin (Lipitor) 20 MG tabletIndications :Dyslipidemia TAKE 1 TABLET BY MOUTH AT BEDTIME 90 tablet 1 Active empagliflozin (Jardiance) 25 MGIndications:Typ e 2 diabetes mellitus with complications (CMS/HCC) Take 1 tablet (25 mg) by mouth Once per day. 90 tablet 3 024 2024 Active Continuous Glucose Sensor (FreeStyle Dunia 2 Sensor) miscIndications:T ype 2 diabetes mellitus with complications (CMS/HCC) Apply 1 sensor every 14 days 2 each 11 Active omeprazole (PriLOSEC) [address] capsule TAKE 1 CAPSULE BY MOUTH EVERY MORNING BEFORE BREAKFAST 90 capsule 3 Active Trulicity 0.75 MG/0.5ML solution auto-injectorIndi cations:Type 2 diabetes mellitus with complications ([facility]/HCC) INJECT ONE PEN (=0.75MG) SUBCUTANEOUSLY ONCE A WEEK DIRECTED 2 mL 2 025 Active Lantus SoloStar 100 UNIT/ML penIndications:Ty pe 2 diabetes mellitus with complications (CMS/HCC) INJECT 36 UNITS SUBCUTANEOUSLY EVERY DAY 15 mL 3 025 Active gabapentin (Neurontin) 100 MG capsule TAKE 2 CAPSULES BY MOUTH THREE TIMES DAILY IN THE MORNING, EVENING AND BEDTIME 180 capsule 1 025 Active acetaminophen (Tylenol 8 Hour) 650 MG ER tabletIndications :Severe dental caries Take 1 tablet (650 mg) by mouth every 8 (eight) hours if needed for mild pain. Do not crush, chew, or split. 30 tablet 025 Active ibuprofen 600 MG tabletIndications :Severe dental caries Take 1 tablet (600 mg) by mouth 3 times daily. 30 tablet 025 Active levothyroxine (Synthroid, Levoxyl) 50 MCG tabletIndications :Acquired hypothyroidism TAKE 1 TABLET BY MOUTH EVERY MORNING ON AN EMPTY STOMACH 90 tablet 1 025 Active Pentips Generic Pen [place] 32G X 4 MM miscIndications:T ype 2 diabetes mellitus with complications ([facility]) USE DIRECTED WITH INSULIN 100 each 5 Active diphenhydrAMINE (BENADryl) 25 MG capsule Take 1 capsule by mouth every 12 (twelve) hours. 019 2021 Discontinued levothyroxine (Synthroid, Levoxyl) 50 MCG tabletIndications :Acquired hypothyroidism TAKE 1 TABLET BY MOUTH EVERY MORNING ON AN EMPTY STOMACH 90 tablet 1 024 2024 Discontinued insulin pen needle (Pentips) 32G x 4 mm miscIndications:T ype 2 diabetes mellitus with complications ([facility]) USE DIRECTED WITH INSULIN 100 each 5 024 2024 Discontinued Active Problems Problem Noted Date Diagnosed Date History of tooth extraction 01/01/2025 Alveolitis of jaw 01/01/2025 Non-restorable tooth 12/27/2024 Encounter for preventive care 07/11/2024 Assessment & Plan (07/11/2024 11:10 AM EDT): Discussed with patient re increase fresh fruit and vegetable intake. Counseled re moderate exercise as tolerated, up to 20min/d Patient feels safe at home. PAP smear: n/a, she is n/a due to ROB Mammogram: up to date, next one due 08/03/24. Bone density test: due on 2028. Eye exam: up to date, next one due 02/2025. CRC screen: overdue, will order cologuard. Lipids/FBS: up to date, next one due 12/2024. Vaccinations: most of them overdue, patient declined all immunizations today. She is aware that she might get complications from preventable diseases. Dental visit: up to date, next one due 11/2024. Encounter for colorectal cancer screening 2023 Assessment & Plan (07/11/2024 11:27 AM EDT): We discussed colonoscopy versus cologuard, she agreed to have cologuard. Necrosis of dental pulp 06/04/2024 Dental caries 04/24/2024 Type 2 diabetes mellitus with complications 12/08 Assessment & Plan (10/17/2024 1:41 PM EST): Slightly uncontrolled, probably related to largely fluctuating BS levels. Advised to decrease Lantus to 16 united and FU with DM educator at paper products supervisor office. Continue Trulicity and Jardiance same dose. FU with me in 4 months. Assessment & Plan (07/11/2024 11:18 AM EDT): Controlled. A1c is at goal. Continue on Trulicity plus Lantus 36 units plus Jardiance 25 mg Counseled re more frequent low calorie/carb meals. Check fgstk twice daily Encouraged physical activity as tolerated. FU in 3 months. Assessment & Plan (06/11/2024 3:55 PM EDT): Doing better Fu with endo on 04/15 Continue Lantus 36u + Jardiance, tolerates well. Assessment & Plan (01/03/2024 10:22 AM EDT): Uncontrolled. Advised to lower carb consumption, to have small meals and to schedule appointment with dietitian. Advised about weight reduction and increase exercise. Increase Lantus to 40 units and follow up with CDTM in 4 weeks. No changes in other medications: continue Jardiance 25 mg + Glipizide + Januvia. I gave Endocrinology clinic information to schedule appointment with Dietitian. Follow up with me in 3 weeks. Class 1 obesity due to exces s calories with serious comorbidity and body mass index (BMI) of 33.0 to 33.9 in adult 09/05/2023 09/05/2023 Assessment & Plan (10/17/2024 1:40 PM EST): Pt has been losing significant weight this year, she is on Trulicity for DM. I encouraged her to continue small portions. Discussed re weight reduction options including exercise, life style modifications, diet. Recommended to decrease soda and sugary beverage consumption, increase protein intake with meals (at least 1 portion of protein with each meal) to assist with satiety, increase dietary fiber Recommended at least 150 min/week of moderate intensity exercise. Trochanteric bursitis of right hip 09/05/2023 09/05/2023 Encounter for preventive health examination 12/2022 Assessment & Plan (07/11/2023 9:49 AM EDT): Discussed with patient re increase fresh fruit and vegetable intake. Counseled re moderate exercise as tolerated, up to 20min/d Patient feels safe at home. PAP smear, no need for PAP smear any longer. Mammogram to be scheduled Eye exam up to date, sallie 09/2023 Lipids/FBS up to date, next one due 02/2024 Vaccinations declines PNA IZ. All other IZ are up to date Dental visit, recommended to make sallie in our clinic Screening mammogram for breast cancer 07/11/2023 Lumbosacral radiculopathy du e to degenerative joint disease of spine 01/18/2023 Assessment & Plan (07/11/2024 12:56 PM EDT): Pt continues to use walker for ambulation, advice to do routine stretching exercises of back and lower legs. Can use cane for short distances, has DME at home to prevent falls. Needs assistance for ADLs, advised to move to a lower floor apartment. Re consult PRN. Assessment & Plan (01/03/2024 9:46 AM EDT): S/p lumbar discectomy, residual back pain. Recommended weight reduction, walk with a walker to prevent falls. Continue Gabapentin 200 mg TID + Tylenol/Ibuprofen prn I gave her information about acupuncture clinic Advised tight control of type 2 diabetes and follow up with pain clinic Pt has assistance with (ADL) Assessment & Plan (07/11/2023 9:51 AM EDT): She had residual leg weakness with ambulation Refer to pain clinic, pt will do MRI after lumbar spine surgery Recommended her to move to a first floor apartment Cont ambulation with walker to prevent falls Assessment & Plan (06/24/2023 9:10 PM EDT): Recently completed PT sessions, able to walk with walker. Needs assistance with ADLs, carrying weight > 15 lb, negotiating stars, bending over etc. Will request evaluation for home care 1-2h/d Continue tylenol prn. If limitation persists, may need Pain clinic ref. Should be moved to lower floor/handicap access, letter written earlier trent [place] Assessment & Plan (02/10/2023 1:54 PM EDT): s/p spinal surgery, needs to fu with neurosurgery currently using wheelchair for longer transfers, counseled regarding risk of falls I will write a letter for pt to be moved to a first floor apartment or handicap access. Assessment & Plan (01/18/2023 10:41 AM EDT): s/p lumbar discectomy, doing well, currently on home PT. Continue PT, consider hospital based PT to improve ambulation. ambulate with a walker for now and use wheelchair for much longer transfers FU with neurosurgeon Continue gabapentin and use Tylenol PRN Candidiasis of vagina 01/17/2023 Vitamin D deficiency 09/05/2022 Seborrheic dermatitis 09/05/2022 Lumbar sprain 09/05/2022 Fall 09/05/2022 Subacute cough 09/05/2022 Assessment & Plan (09/12/2022 8:22 PM EST): It seems to be residual from recent URI? Covid? Influenza? I counseled her to come to [facility] for further evaluation or that we could make an appt for her to be seen today or tomorrow, given the fact that she has not been vaccinated for above conditions and she;s at high risk for complications, she refused. I rx Fluticasone nasal spray for ?PND and to use tyelnol prn pain. Counseled her re increased PO fluids and water/salt gargles or take cough drops. She's to call back prn if sxs do not improve. Counseled her to put her covid vax/infleunza once sxs are resolved Arthritis of hip 09/05/2022 Assessment & Plan (06/11/2024 3:55 PM EDT): Doing better, still using walker for ambulation prn Continue tylenol prn, strengthening exercises at home. Acute thoracic back pain 09/05/2022 Mild intermittent asthma 02/28/2019 Assessment & Plan (10/17/2024 1:38 PM EST): Controlled, pt to continue Singulair daily and Albuterol PRN only. She will have the Influenza and PCV-20 vaccinations today, declined Covid immunization. Assessment & Plan (07/11/2024 12:45 PM EDT): Controlled, no recent exacerbations. Denies Covid and Influenza immunizations. Continue Singulair and Albuterol inhaler PRN Assessment & Plan (01/18/2023 10:44 AM EDT): Controlled. Currently doing well on proair PRN No brochonspasm today Continue proair [id number] PRN Housing situation unstable 02/28/2019 Ductal hyperplasia of breast 08/06/2018 Varicose veins of lower extremity 04/02/2018 Facial rash 01/30/2018 Assessment & Plan (01/18/2023 10:46 AM EDT): Renewed prescription for betamethasone cream to use once per day for no more than 1 week. Use cetirizine daily until next appointment and will decide if we need to send her again for allergy testing at next appointment Thyroid nodule 10/31/2017 Obstructive sleep apnea syndrome 09/28/2017 Depression 09/28/2017 Assessment & Plan (06/24/2023 9:13 PM EDT): FU with Dr Prado Continue Sertraline Assessment & Plan (01/18/2023 10:43 AM EDT): Continue sertraline 100mg only She will be off wellbutrin for now and she is to schedule an appointment with Dr. Prado Hypertension 09/28/2017 Assessment & Plan (07/11/2024 12:57 PM EDT): Controlled. Compliant w/meds Continue HCTZ + Losartan + Amlodipine same dose Counseled re low salt diet/increase moderate physical activity. Check home BP BIW and prn CP/KOENIG/JORDAN Non smoking patient. Follow up in 6 months. Assessment & Plan (07/11/2023 10:53 AM EDT): Repeated BP is 140/80 Controlled. Compliant w/meds Continue hctz 25 mg + amlodipine 10 mg + Cozaar 100 mg Counseled re low salt diet/increase moderate physical activity. Check home BP BIW and prn CP/KOENIG/JORDAN Non smoking patient. FU 3 months Assessment & Plan (01/18/2023 10:47 AM EDT): Controlled. Continue Losartan + amlodipine Counseled re low salt diet/increase moderate physical activity. Check home BP BIW and prn CP/KOENIG/JORDAN Non smoking patient. Dyslipidemia 09/28/2017 Hypothyroidism 09/28/2017 Assessment & Plan (09/12/2022 8:23 PM EST): TSH is at goal. Continue Levothyroxine 50mcg/d Check TSH in 6-8 m Resolved Problems Problem Noted Date Diagnosed Date Resolved Date Diabetes due to underlying c ondition w oth circulatory comp 06/24/2023 10/17/2024 Assessment & Plan (06/24/2023 9:12 PM EDT): See below, will refer to endocrinology Abdominal pain 04/28/2023 10/17/2024 Assessment & Plan (06/24/2023 9:11 PM EDT): Resolved with Omeprazole Take omeprazole prn, re consult if sxs persists > 3m Assessment & Plan (04/28/2023 4:41 PM EDT): Pt w 5 days of epigastric burning pain w no radiation ,had diarrhea now resolved as well nausea that is mild and KOENIG resolved as well No RUQ tenderness and pain not associated w meals so seems cholelithiasis is less likely . Pancreatitis seems as well unlikely w only description of burning epigastric pain Benign abd exam VS wnl Will tx as possible gastroenteritis/gastritis COVID 19/Flu neg -hydration -omeprazole 20 mg daily in fasting -sent by mistake 11 refills of med but I called px and requested to change to 30 tab w 1 refill -advised to avoid NSAIDS -thinks taking it prescribed after her recent back surgery -to try lidoderm patch px today and tylenol prn -alarm signs and symptoms explained to pt in case needs to go to ED -if symptoms persist would consider abd US Palpitations 04/28/2023 10/17/2024 Assessment & Plan (04/28/2023 4:35 PM EDT): Pt reports palpitations and chest discomfort on and off that is stabbing in nature ,denies pressure type of pain EKG today is NSR, no ischemic findings HR 75x' 02/2023 TSH and cr wnl -referred today to cardiology to workup symptoms -alarm sings and symptoms discussed Rash 10/25/2022 07/11/2023 Assessment & Plan (10/25/2022 3:36 PM EST): On chest. -Use triamcinolone cream PRN. -Keep a symptom diary and exclude potential allergens. Acute back pain with sciatica 09/05/2022 07/11/2023 Benign neoplastic disease 08/06/2018 Tinea pedis 05/25/2018 10/17/2024 Skin problem 05/25/2018 07/11/2023 Abnormal mammogram of left breast 02/06/2018 07/11/2023 Neck pain 10/18/2017 10/17/2024 Diabetes 09/28/2017 07/11/2024 Assessment & Plan (07/11/2023 10:28 AM EDT): Uncontrolled, worse than previous Continue on Jardiance 25 mg, FU with endo in 2 wks Cont Glipizide + Januvia + Humalog PRN Counseled re more frequent low calorie/carb meals. Encouraged physical activity as tolerated. FU in 2 months. Assessment & Plan (04/28/2023 4:36 PM EDT): Pt CBG today is 222-reports to be compliant w all her meds but reports using her lispro insulin only daily and not with three meals -advised to check CBGs prior three meals a day and apply as rec by PCP -to f PCP in next month Assessment & Plan (02/10/2023 1:54 PM EDT): Most likely still uncontrolled. Add glipizide xl 2.5mg in the evning meal, continue 10mg in the morning + Januvia pt will get labs today and FU with me in 4 weeks. Assessment & Plan (01/18/2023 10:42 AM EDT): Uncontrolled. Restart Januvia 100mg, continue glipizide 10mg in the morning + Humalog TID AC meals sliding scale FU with me in 3-4 weeks to adjust other medications Counseled re more frequent low calorie/carb meals. Check fgstk daily Encouraged physical activity as tolerated. Assessment & Plan (10/25/2022 3:28 PM EST): Most likely still uncontrolled. -Increase glipizde to 5mg in the afternoon, continue 10 mg in the morning. -Encouraged to check sugars more frequently. -Discussed diabetic diet. -Advised to increase physical activity and decrease caloric intake. -Will check FBS with next set of labs -Will check RBS at next visit. -Schedule an appointment with DM educator. -Encouraged to FU with dietitian this time. -FU with me in 2 months -She declined influenza or COVID iz today. Assessment & Plan (09/12/2022 8:27 PM EST): Uncontrolled. I suggested she fu w nutricion first before making furhter med adjustments. She will call to appt. Cotinue Glipizide 10mg, Jardiance 25mg, Januvia 100mg And Humalog sliding scale. She agreed with POC Counseled re more frequent low calorie/carb meals. Check fgstk 3x daily Encouraged physical activity as tolerated. FU in 6-8w Declined covid or influenza IZ appt Encounters Date Type Department Care Team Description 02/11/2025 1:30 PM EDT Office Visit [facility] [address] [place] [address] Ronnell Dunlap DDS Dental caries (Primary Dx) 01/31/2025 Refill [facility] [address] [place] [address] Bhavana Gomez MD 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) 01/15/2025 Refill [facility] [address] [place] [address] Bhavana Gomez MD Acquired hypothyroidism 01/01/2025 11:30 AM EDT Office Visit [facility] [address] [place] [address] Ronnell Dunlap DDS History of tooth extraction, unspecified edentulism class (Primary Dx); Alveolitis of jaw 12/27/2024 10:30 AM EDT Office Visit [facility] [address] [place] [address] Ronnell Dunlap DDS Severe dental caries (Primary Dx); Non-restorable tooth 12/27/2024 Refill [facility] [address] [place] [address] Bhavana Gomez MD 12/20/2024 Population Health Risk Score [facility] [address] [place] [id number] Provider, Population Health Generic 12/11/2024 5:20 PM EST Office Visit [facility] [address] [place] [address] Jluis Tracey MD Right lateral epicondylitis (Primary Dx) 12/10/2024 8:45 AM EST Office Visit [facility] [address] [place] [address] FerrbriandaiMely Dental calculus (Primary Dx); Dental plaque 11/28/2024 Telephone [facility] [address] [place] [address] Bhavana Gomez MD February recall 11/26/2024 Refill [facility] [address] [place], [place] [phone] Bhavana Gomez MD Type 2 diabetes mellitus with complications ([facility]) from Last 3 Months Immunizations Name Administration Dates Next Due Hep B, adult 02/21/2024(Deferred: Patient Ref used) Influenza injectable quadriv alent IIV4 with preservative 08/06/2018,09/28/2017 Influenza, seasonal, injecta ble, preservative free 10/17/2024 Pfizer Covid-19 Vaccine 12+ 02/21/2024(Deferred: Patient Refused) Pneumococcal Conjugate PCV 20 10/17/2024 ,02/21/2024(Deferred: Patient Refused) Pneumococcal Polysaccharide PPSV23 08/06/2018 RSV Bivalent 02/21/2024(Deferred: Patient Ref used) Tdap 09/28/2017 Zoster, Recombinant 02/21/2024(Deferred: Patient Refused) Family History Relation Name Status Comments Brother Father Social History Tobacco Use Types Packs/Day Years Used Date Smoking Tobacco: Never Passive Smoke Exposure: Never Smokeless Tobacco: Never Tobacco Cessation:Counseling Given: Not Answered Alcohol Use Standard Drinks/Week Comments Never 0 [...] Orientation Straight 08/08/2022 10 :32 AM EDT Last Filed Vital Signs Vital Sign Reading Time Taken Comments Blood Pressure 128/76 02/11/2025 1:25 PM EDT Pulse 76 01/01/2025 11:48 AM EDT Temperature 36 ??C (96.8 ??F) 12/11/2024 4:54 PM EST Respiratory Rate 17 12/11/2024 4:54 PM EST Oxygen Saturation 96% 10/17/2024 10: 20 AM EST Inhaled Oxygen Concentration - - Weight 89.3 kg (196 lb 12.8 oz) 12/11/2024 4:54 PM EST Height 165.1 cm (5' 5 ) 12/11/2024 4:54 PM EST Body Mass Index 32.75 12/11/2024 4:54 PM EST Plan of Treatment Upcoming Encounters Date Type Department Care Team (Late st Contact Info) Description 02/26/2025 10:00 AM EDT Office Visit [facility] [address] [place] [address] Bhavana Gomez MD [address] [place] [address] 03/17/2025 2:30 PM EDT Office Visit [facility] [address] [place], [place] [phone] Ronnell Dunlap, DDS [address] [place], [place] [phone] 06/16/2025 1:00 PM EDT Office Visit [facility] [address] [place] [address] Crystal Gold Health Maintenance Due Date Last Done Comments CT Colonography 1963 Colonoscopy 1963 Colorectal Cancer Screening 1963 FIT DNA/Cologuard 1963 FIT 1963 FOBT 1963 HIV Screening 1963 Sigmoidoscopy 1963 Alcohol/Substance Use Screening 1975 Zoster Vaccines (1 of 2) 2013 Depression Screening 10/25/2023 10/25/2022, 10/25/19 23 RSV Patients and Patients Aged 60 years or older (1 - Risk 60-74 years 1-dose series) 2023 COVID-19 Vaccine ( season) 2024 Mammogram 08/02/2024 08/02/2023, 07/10, 07/01/2022, Additional history exists Lipid Panel 11/15/2024 11/15/2023, 11/2021, 10/22/2020 Diabetes: Urine Protein Screening 01/02/2025 01/03/2024, 09/09/2022, 10/22/2020 Diabetes: Foot Exam 03/25/2025 03/25/2024, 03/25/2024, 03/25/2024, Additional history exists SDOH Screening 03/25/2025 03/25/2024 Dental X-Ray: Bitewings 06/05/2025 06/04/20 24, 05/09/2019, 11/21/2017 Dental Oral Exam 06/13/2025 12/10/2024, 01/2025, 06/04/2024, Additional history exists Dental Prophylaxis 06/13/2025 12/10/2024, 0 06/18/2024, 11/07/2019, Additional history exists Diabetes: Hemoglobin A1C 07/04/2025 025, 10/17/2024, 07/16/2024, Additional history exists Eye Exam 02/08/2026 02/09/2024, 05/0 12/2023, 02/09/2024, Additional history exists Tobacco Screening 02/11/2026 02/11/2025 Dental X-Ray: Full Mouth 06/05/2027 024, 12/14/2017, 11/21/2017 DTaP/Tdap/Td Vaccines (2 - Td or Tdap) 09/28/2027 09/28/2017 Hepatitis C Screening Completed 06/21/2023 Influenza Vaccine Completed 10/17/2024, , 09/28/2017 Pneumococcal Vaccine: 50+ Years Completed 10/17/2024, 08/06/2018 HIB Vaccines Aged Out No longer eligi ble based on patient's age to complete this topic HPV Vaccines Aged Out No longer eligi ble based on patient's age to complete this topic Hepatitis A Vaccines Aged Out No long er eligible based on patient's age to complete this topic Hepatitis B Vaccines Aged Out No long er eligible based on patient's age to complete this topic IPV Vaccines Aged Out No longer eligi ble based on patient's age to complete this topic Meningococcal Vaccine Aged Out No nicolas monika eligible based on patient's age to complete this topic RSV under 20 months Aged Out No longe r eligible based on patient's age to complete this topic Rotavirus Vaccines Aged Out No longer eligible based on patient's age to complete this topic Goals Goal Patient Goal Type Associated Problems Recent Progress Patient-Stated? Author Blood Pressure < 140/90 Blood Pressure 128/76(2024 1:25 PM EDT) No Twan Trujillo, Garrick Hemoglobin A1c < 7 Result Component 6.8( 10:31 AM EDT) No Twan Trujillo, Garrick Procedures Procedure Name Priority Date/Time Associated Diagnosis Comments INTRAORAL - PERIAPICAL EACH ADDITIONAL RADIOGRAPHIC IMAGE Routine 02/11/2025 1:30 PM EDT CASE PRESENTATION, DETAILED AND EXTENSIVE TREATMENT PLANNING Routine 02/11/2025 1:30 PM EDT 4 MO RESIN-BASED COMPOSITE - 2 SURF, POSTERIOR Routine 02/11/2025 1:30 PM EDT 5 DO RESIN-BASED COMPOSITE - 2 SURF, POSTERIOR Routine 02/11/2025 1:30 PM EDT INTRAORAL - PERIAPICAL FIRST RADIOGRAPHIC IMAGE Routine 01/01/2025 11:30 AM EDT LIMITED ORAL EVALUATION - PROBLEM FOCUSED Routine 01/01/2025 11:30 AM EDT 32 EXTRACTION, ERUPTED TOOTH REQ REMOVAL OF BONE AND/OR SECTIONING OF TOOTH Routine 12/27/2024 10:30 AM EDT CASE PRESENTATION, DETAILED AND EXTENSIVE TREATMENT PLANNING Routine 12/27/2024 10:30 AM EDT COMPREHENSIVE PERIODONTAL EVALUATION - NEW OR ESTABLISHED PATIENT Routine 12/10/2024 8:45 AM EST PERIODIC ORAL EVALUATION - ESTABLISHED PATIENT Routine 12/10/2024 8:45 AM EST PERIODIC ORAL EVALUATION - ESTABLISHED PATIENT Routine 12/10/2024 8:45 AM EST ORAL HYGIENE INSTRUCTIONS Routine 12/10/2024 8:45 AM EST Dental calculus Dental plaque CASE PRESENTATION, DETAILED AND EXTENSIVE TREATMENT PLANNING Routine 12/10/2024 8:45 AM EST PROPHYLAXIS - ADULT Routine 12/10/2024 8 :45 AM EST Dental calculus Dental plaque POCT GLYCATED HEMOGLOBIN, TOTAL Routine 10/17/2024 10:45 AM EST 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) INTRAORAL - COMPLETE SERIES OF RADIOGRAPHIC IMAGES Routine 06/04/2024 3:00 PM EDT ALBUMIN, RANDOM URINE W/CREATININE Routine 01/03/2024 10:07 AM EDT LIPID PANEL, STANDARD Routine 11/15/2023 12:04 PM EST BI MAMMOGRAM SCREENING TOMOSYNTHESIS BILATERAL Routine 08/02/2023 2:36 PM EDT HEPATITIS PANEL, GENERAL Routine 06/21/2023 12:55 PM EDT Encounter for preventive health examination from Last 3 Months or Most Recently Relevant to Health Maintenance Results * Albumin, Random Urine W/Creatinine (01/03/2024 10:07 AM EDT) Creatinine, Urine 90.81 mg/dL [facility] Microalbumin Urine <5.0 mg/L [facility] Microalbum Creatinine Ratio Ur TNP <30 ug/mg cr [facility] Comment:Unable to calculate albumin/creatinine ratio due to lowmicroalbumin or creatinine result. 01/03/2024 10:0 7 AM EDT 01/03/2024 11:13 AM EDT us Bhavana Gomez MD LAB URINE ORDERABLES Fin al Result Performing Organization Address City/[facility]/[employer] Phone Number [facility] [address] [place] [phone] * Lipid Panel, Standard (11/15/2023 12:04 PM EST) Triglycerides 116 <150 mg/dL [facility] Comment:Desirable Triglyceri de: less than 150 mg/dLBorderline High Triglyceride 150-199 mg/dLHigh Triglyceride: 200-499 mg/dLVery High Triglyceride: greater than or equal to 5OO mg/dL Cholesterol 179 <200 mg/dL [facility] Comment:Desirable Cholestero l: less than 200 mg/dLBorderline High Cholesterol: 200-239 mg/dLHigh Cholesterol: greater than 239 mg/dL LDL Cholesterol Calculated 85 <100 mg/dL [facility] Comment:Desirable LDL: less than 100 mg/dLNear Optimal/Above Optimal LDL: 110- 129 mg/dLBorderline High LDL: 130-159 mg/dLHigh LDL: 160-189 mg/dLVery High LDL: greater than or equal to 190 mg/dL HDL Cholesterol 71 >40 mg/dL [facility] Comment:Desirable HDL: great er than 40 mg/dL Note: This HDL assay may give artificially low results in patients with liver disease. 11/15/2023 12:0 4 PM EST 11/15/2023 12:06 PM EST us Bhavana Gomez MD LAB BLOOD ORDERABLES Fin al Result [facility] [address] [place], [place] [address], [place] [address] [phone] * BI Mammogram Screening Tomosynthesis Bilateral (08/02/2023 2:36 PM EDT) Anatomical Region Laterality Modality Breast Bilateral Mammography 08/02/2023 2:36 PM EDT Narrative 08/21/2023 5:39 AM EST ? [facility] [place] ? [address] ?[place] [address] ? Mammography Report ? Signed ? Patient: Amie Tejada ?MR#: [id number] ?? [id number] ? : 1965 ?Acct:[id number] ? Age/Sex: 57 / F ?ADM Date: 08/02/ ? Loc: HO.MAMMO ? Attending Dr: Bhavana Gomez MD ? Ordering Physician: Bhavana Gomez MD ?Results: 2Be ?? nign Findings ? Date of Service: 08/02/ ?Follow Up: 1 Year From Orig ?? inal Mammogram ? Procedure(s): MM tomosynthesis screening BI ?? Accession Number(s): [id number] ? cc: Bhavana Gomez MD ? EXAMINATION: ?? MM SCREENING DIGITAL BREAST TOMOSYNTHESIS, BILATERAL ? CLINICAL INFORMATION: ? Screening. Asymptomatic. ? COMPARISON: ?? Mammography: This study is compared with prior exams dating back to ?? 2017. ? TECHNIQUE: ?? Digital breast tomosynthesis is performed in both the craniocaudal and ?? mediolateral oblique views along with computer-aided detection (CAD). ?? Synthesized 2D images are generated from the tomosynthesis. ? FINDINGS: ?? The breasts are almost entirely fatty (ACR BI-RADS breast composition ?? Category a). ? There are no significant masses, abnormal calcifications, or other ?? abnormalities. ? There is a biopsy tissue marker in the lobulated, well-circumscribed, ?? benign mass of the upper outer quadrant of the left breast. ? MM/MM tomosynthesis screening BI ?? IMPRESSION: ?? No mammographic evidence of malignancy. ? ASSESSMENT: ? BI-RADS BI-RADS 2 - Benign Findings ? RECOMMENDATION: ?? Routine annual mammography screening. ? 1 year F/U ? This examination should not preclude the clinical evaluation of a ?? suspicious palpable abnormality. ? This patient's information was entered into a reminder system with a ?? target due date for their next mammogram. ? Dictated By: ?Renae Chirinos MD ? Signed By: ?<Electronically signed by Renae Chirinos MD in OV> ? 08/21/23 0535 ? DD/ 1436 ? TD/TT: ? Custom Bookbinder: ? Procedure Note Gustavo, Image - 08/21/2023 [facility] [address] [place] [address] [place] [address] Mammography Report Signed Patient: Amie Tejada#: M [id number] : 1965Acct:[id number] Age/Sex: 57 / FADM Date: 08/02/23 Loc: TWYLA Attending Dr: Bhavana Gomez MD Ordering Physician: Bhavana Gomez MDResults: 2Be nign Findings Date of Service: 08/02/23Follow Up: 1 Year From Orig inal Mammogram Procedure(s): MM tomosynthesis screening BI Accession Number(s): [id number] cc: Bhavana Gomez MD EXAMINATION: MM SCREENING DIGITAL BREAST TOMOSYNTHESIS, BILATERAL CLINICAL INFORMATION: Screening. Asymptomatic. COMPARISON: Mammography: This study is compared with prior exams dating back to 2018. TECHNIQUE: Digital breast tomosynthesis is performed in both the craniocaudal and mediolateral oblique views along with computer-aided detection (CAD). Synthesized 2D images are generated from the tomosynthesis. FINDINGS: The breasts are almost entirely fatty (ACR BI-RADS breast composition Category a). There are no significant masses, abnormal calcifications, or other abnormalities. There is a biopsy tissue marker in the lobulated, well-circumscribed, benign mass of the upper outer quadrant of the left breast. MM/MM tomosynthesis screening BI IMPRESSION: No mammographic evidence of malignancy. ASSESSMENT: BI-RADS BI-RADS 2 - Benign Findings RECOMMENDATION: Routine annual mammography screening. 1 year F/U This examination should not preclude the clinical evaluation of a suspicious palpable abnormality. This patient's information was entered into a reminder system with a target due date for their next mammogram. Dictated By: Renae Chirinos MD Signed By: <Electronically signed by Renae Chirinos MD in OV> 08/21/23 0535 DD/ 1436 TD/TT: Custom Bookbinder: Bhavana Gomez MD IMG BI PROCEDURES Final Result * Hepatitis Panel, General (06/21/2023 12:55 PM EDT) Hepatitis A IgM Nonreactive Nonreactive [facility] Comment:IgM antibodies to KOENIG V not detected; does not exclude earlyacute or recovered HAV infection. ~Hepatitis B Surface Antibody NONREACTIVE Nonreactive [facility] Comment:Nonreactive: < 8.00 mIU/mL Hepatitis B Core Antibody Nonreactive Nonreactive [facility] Hepatitis C Antibody Nonreactive Nonreactive [facility] Comment:Antibodies to HCV no t detected; does not exclude early acuteHCV infection. Hepatitis B Surface Ag Negative Negative [facility] Blood 06/21/2023 12:5 5 PM EDT 06/21/2023 4:39 PM EDT Bhavana Gomez MD LAB BLOOD ORDERABLES Fin al Result [facility] [address] [place] [address] [phone] from Last 3 Months or Most Recently Relevant to Health Maintenance Insurance [facility] [address] [place] [address] DENTAL-[facility] [place] [address] Care Teams Maintenance Painter Apprentice Relationship Specialty Start Date End Date Bhavana Gomez MD [address] [place] [address] PCP - General Family Medicine 09/28/17 Twan Trujillo, PharmD [address] [place] [address] Pharmacist Internal Medicine 09/12/23
--- OUTSIDE RECORDS SUMMARY | 2025-02-12 08:12 | XMS_ITS | Encounter Summary ---
Author Organization [employer] Address [address] [facility] 7t [place] [address] Care Team Providers Care Air Traffic Control Manager Name Role Phone Bhavana Gomez MD Primary Care Provider + Twan Trujillo PharmD Unavailable [phone] Reason for Visit * Reason Comments Med Refill Encounter Details Date Type Department Care Team ([facility] st Contact Info) Description 10/30/2024 Refill [facility] [address] [place], [place] [phone] Bhavana Gomez MD [address] [place], [place] [phone] Postlaminectomy syndrome, not elsewhere classified Social History Tobacco Use Types Packs/Day Years [...] Description 02/26/2025 10:00 AM EDT Office Visit [facility] [address] [place] [address] Bhavana Gomez MD [address] [place] [phone] 03/17/2025 2:30 PM EDT Office Visit [facility] ADULT DENTAL [address] [place] [address] Ronnell Dunlap DDS [address] [place] [address] 06/16/2025 1:00 PM EDT Office Visit [facility] ADULT DENTAL [address] [place] [address] Crystal Gold documented as of this encounter Goals Goal Patient Goal Type Associated Problems Recent Progress Patient-Stated? Author Blood Pressure < 140/90 Blood Pressure 128/76(2024 1:25 PM EDT) No Twan Trujillo PharmD Hemoglobin A1c < 7 Result Component 6.8( 10:31 AM EDT) No Twan Trujillo PharmD documented as of this encounter Visit Diagnoses Diagnosis Postlaminectomy syndrome, not elsewhere classified documented in this encounter Care Teams Air Traffic Control Manager Relationship Specialty Start Date End Date Bhavana Gomez MD [address] [place] [address] PCP - General Family Medicine 09/28/17 Twan Trujillo, Garrick [address] [place] [phone] Pharmacist Internal Medicine 09/12/23 documented as of this encounter
--- OUTSIDE RECORDS SUMMARY | 2025-02-12 08:12 | XMS_ITS | Encounter Summary ---
Author Organization [employer] Address [address] [facility] 7t [place] [address] Care Team Providers Care Data Analysis Intern Name Role Phone Bhavana Gomez MD Primary Care Provider + Twan Trujillo PharmD Unavailable [phone] Encounter Details Date Type Department Care Team (Latest Contact Info) Description 05/09/2019 Abstract [facility] CONVERSIONS Dental, Provider, DDS Social History Tobacco Use Types Packs/Day Years Used Date Smoking Tobacco: Never Assessed Comments Unknown Sex and Gender Information Value Date Recorded Sex Assigned at Female 08/08/2022 10:32 AM EDT Legal Sex Female 10:32 AM EDT Gender Identity Female 08/08/2022 10:32 AM EDT Sexual Orientation Straight 08/08/2022 10 :32 AM EDT documented as of this encounter Plan of Treatment Upcoming Encounters Date Type Department Care Team ( st Contact Info) Description 02/26/2025 10:00 AM EDT Office Visit [facility] MEDICINE [address] [place] [address] Bhavana Gomez MD [address] [place] [address] 03/17/2025 2:30 PM EDT Office Visit [facility] ADULT DENTAL [address] [place] [address] Ronnell Dunlap DDS [address] [place] [address] 06/16/2025 1:00 PM EDT Office Visit [facility] ADULT DENTAL [address] [place] [address] Crystal Gold documented as of this encounter Visit Diagnoses Not on filedocumented in this encounter Care Teams Data Analysis Intern Relationship Specialty Start Date End Date Bhavana Gomez MD [address] [place] [address] PCP - General Family Medicine 09/28/17 Twan Trujillo PharmD [address] [place] [address] Pharmacist Internal Medicine 09/12/23 documented as of this encounter
--- OUTSIDE RECORDS SUMMARY | 2025-02-12 08:12 | XMS_ITS | Encounter Summary ---
Author Organization [employer] Address [address] [facility] 7t [place] [address] Care Team Providers Care Auto Top Mechanic Name Role Phone Bhavana Gomez MD Primary Care Provider + Twan Trujillo PharmD Unavailable [phone] Reason for Visit * Reason Comments Med Refill Encounter Details Date Type Department Care Team ([facility] st Contact Info) Description 10/31/[address] [facility] MED[facility] [address] [place], [place] [phone] Bhavana Gomez MD [address] [place], [place] [phone] Postlaminectomy syndrome, not elsewhere classified Social History [...] Description 02/26/2025 10:00 AM EDT Office Visit [facility] MED[facility] [address] [place] [phone] Bhavana Gomez MD [address] [place] [address] 03/17/2025 2:30 PM EDT Office Visit [facility] ADULT DENTAL [address] [place] [phone] Ronnell Dunlap DDS [address] [place] [address] 06/16/2025 1:00 PM EDT Office Visit [facility] ADULT DENTAL [address] [place] [phone] Crystal Gold documented as of this encounter [...] classified documented in this encounter Care Teams Auto Top Mechanic Relationship Specialty Start Date End Date Bhavana Gomez MD [address] [place] [phone] PCP - General Family Medicine 09/28/17 Twan Trujillo, Garrick [address] [place] [phone] Pharmacist Internal Medicine 09/12/23 documented as of this encounter
[2025-02-12 11:57] LABS: Alanine Aminotransferase 19 U/L (0-31); Albumin Level 4.2 g/dL (3.5-5.0); Alkaline Phosphatase 121 U/L (39-117); Aspartate Amino Transferase 17 U/L (5-31); Bilirubin Direct 0.2 mg/dL (0.0-0.5); Bilirubin Total 0.5 mg/dL (0.0-1.0); Cholesterol 166 mg/dL (<200); HDL Cholesterol 60 mg/dL (>40); LDL Cholesterol Calculated 83 mg/dL (<100); Total Protein 7.5 g/dL (6.5-8.0); Triglycerides 119 mg/dL (<150)
== END 2025-02-12 08:06 | disposition home or self-care (01) ==
LOC: HO.HHCL 08:05
PROVIDERS: Visit Provider Nurse Practitioner Family
DX: I25.10 Atherosclerotic heart disease of native coronary artery without angina pectoris (principal); E78.5 Hyperlipidemia, unspecified
CPT/HCPCS: 36415; 80061; 80076

== ENCOUNTER 2025-02-20 12:27 | Outpatient (REF) | payer MEDICAID, SELFPAY ==
--- OUTSIDE RECORDS SUMMARY | 2025-02-20 13:11 | XMS_ITS | Encounter Summary ---
Author Organization [employer] Address [address] [facility] 7t [place] [address] Care Team Providers Care Sales Ambassador Name Role Phone Bhavana Gomez MD Primary Care Provider + Twan Trujillo PharmD Unavailable [phone] Reason for Visit * Reason Comments Pre-visit Planning SDOH screening posit renata and Tobacco screening negative SDOH Concerns C3CM/CHW DEMETRIUS Thomas SDOH pest control Encounter Details Date Type Department Care Team ([facility] st Contact Info) Description 02/17/2025 Patient Outreach [facility] [address] [place], [place] [phone] Bhavana Gomez MD [address] [place], [place] [phone] Pre-visit Planning (SDOH screening positive and Tobacco screening negative); SDOH Concerns (C3CM/CHDEMETRIUS Delgadillo SDOH pest control) Social History Tobacco Use Types Packs/Day Years Used Date Smoking Tobacco: Never Passive Smoke Exposure: Never Smokeless Tobacco: Never Alcohol Use Standard Drinks/Week Comments Never 0 (1 standard drink = 0.6 oz pur e alcohol) Housing Stability Answer Date Recorded What is your housing situation today? I have erica sing 02/17/[address] you li ve. Do you have problems with any of the following? Pests such as bugs, ants, or mice 02/17/2025 Food Insecurity Answer Date Recorded Within the [...] Answer Date Recorded Internet Access Q1 No 02/17/2025 Internet Access Q2 I do not want or need it 02/06 Comments No Sex and Gender Information Value Date Recorded Sex Assigned at Female 08/08/2022 10:32 AM EDT Legal Sex Female 10:32 AM EDT Gender Identity Female 08/08/2022 10:32 AM EDT Sexual Orientation Straight 08/08/2022 10 :32 AM EDT documented as of this encounter Progress Notes * Vinh Reza - 02/17/2025 2:53 PM EDT CC Vinh alston successful outbound call to patient for pre-visit planning. Patient name and confirmed. Patient confirms appt date and time, and has transportation arrangements. Biggest concern for appointment at this time is no concerns. Patient advised to bring to appointment a photo id and insurance card. Appropriate screenings completed in anticipation of appointment. SDOH positive. Patient looking for assistance with PESTS: roaches and mice. Referral will be placed. * Abraham Fuchs - 02/17/2025 2:53 PM EDT CHW Abraham Fuchs, placed call to patient regarding SDOH pest control issue. No answer at this time. CHW LVM requesting call back. documented in this encounter Plan of Treatment Upcoming Encounters Date Type Department Care Team ([facility] Contact Info) Description 02/26/2025 10:00 AM EDT Office Visit [facility] [address] [place] [address] Bhavana Gomez MD [address] [place] [address] 03/17/2025 2:30 PM EDT Office Visit [facility] ADULT DENTAL [address] [place] [address] Ronnell Dunlap DDS [address] [place] [address] 06/16/2025 1:00 PM EDT Office Visit [facility] ADULT DENTAL [address] [place] [address] Crystal Gold documented as of this encounter Goals Goal Patient Goal Type Associated Problems Recent Progress Patient-Stated? Author Blood Pressure < 140/90 Blood Pressure 128/76(2024 1:25 PM EDT) No Twan Trujillo, Garrick Hemoglobin A1c < 7 Result Component 6.8( 10:31 AM EDT) No Twan Trujillo, PharmJoanne documented as of this encounter Visit Diagnoses Not on filedocumented in this encounter Care Teams Sales Ambassador Relationship Specialty Start Date End Date Bhavana Gomez MD [address] [place] [phone] PCP - General Family Medicine 09/28/17 Twan Trujillo PharmD [address] [place] [address] [phone] Pharmacist Internal Medicine 09/12/23 documented as of this encounter
--- OUTSIDE RECORDS SUMMARY | 2025-02-20 13:11 | XMS_ITS | Encounter Summary ---
Author Organization [employer] Address [address] [facility] 7t [place] [address] Care Team Providers Care Medical Representative Name Role Phone Bhavana Gomez MD Primary Care Provider + Twan Trujillo PharmD Unavailable [phone] Reason for Visit * Reason Comments Med Refill Encounter Details Date Type Department Care Team ([facility] st Contact Info) Description 10/30/2024 Refill [facility] MEDICINE [address] [place], [place] [phone] Bhavana Gomez MD [address] [place], [place] [phone] Postlaminectomy syndrome, not elsewhere classified Social History [...] Description 02/26/2025 10:00 AM EDT Office Visit [facility] MEDICINE [address] [place] [address] Bhavana Gomez MD [address] [place] [address] 03/17/2025 2:30 PM EDT Office Visit [facility] ADULT DENTAL [address] [place] [phone] Ronnell Dunlap DDS [address] [place] [address] 06/16/2025 1:00 PM EDT Office Visit [facility] ADULT DENTAL [address] [place] [phone] Crystal Gold documented as of this encounter [...] classified documented in this encounter Care Teams Medical Representative Relationship Specialty Start Date End Date Bhavana Gomez MD [address] [place] [phone] PCP - General Family Medicine 09/28/17 Twan Trujillo, Garrick [address] [place] [phone] Pharmacist Internal Medicine 09/12/23 documented as of this encounter
--- OUTSIDE RECORDS SUMMARY | 2025-02-20 13:11 | XMS_ITS | Clinical Summary ---
Author Organization [employer] Address [address] [facility] 7t [place] [address] Care Team Providers Care Mass Spectrometry Specialist Name Role Phone Bhavana Gomez MD Primary Care Provider + Twan Trujillo PharmD Unavailable [phone] Allergies Active Allergy Reactions Criticality Noted Date Comments Coconut Fatty Acid Rash,Anaphylaxis High 08/26/2020 Other reaction(s): Hives / Skin Rash, Rash Peanut-Containing Drug Products 02/10/2023 Shellfish-Derived Products 01/30/2018 Other reaction(s): Hives / Skin Rash Rumford Extract Anaphylaxis High 08/26/2020 Other reaction(s): Hives [...] mouth in the morning. Active Continuous Glucose Signal Manager (FreeStyle Dunia 2 Raymond) deviceIndications :Type 2 diabetes mellitus with complications [...] auto-injectorIndi cations:Type 2 diabetes mellitus with complications ([facility]/HCC) INJECT ONE PEN (=0.75MG) SUBCUTANEOUSLY ONCE [...] tablet 1 025 Active Pentips Generic Pen Exeter 32G X 4 MM miscIndications:T ype 2 diabetes mellitus with complications ([facility]) USE DIRECTED WITH INSULIN 100 each 5 025 Active diphenhydrAMINE (BENADryl) 25 MG capsule Take 1 capsule by mouth every 12 (twelve) hours. 019 2021 Discontinued insulin pen needle (Pentips) 32G x 4 mm miscIndications:T ype 2 diabetes mellitus with complications ([facility]) USE DIRECTED WITH INSULIN 100 each 5 [...] smear: n/a, she is n/a due to [facility] Mammogram: up to date, next one due [...] united and FU with DM educator at tile setter supervisor office. Continue Trulicity and Jardiance same [...] to lower floor/handicap access, letter written earlier this kristian Assessment & Plan (02/10/2023 1:54 PM EDT): [...] Influenza? I counseled her to come to [facility] for further evaluation or that we could [...] proair PRN No brochonspasm today Continue proair [id number] PRN Housing situation unstable 02/28/2019 Ductal hyperplasia [...] Encounters Date Type Department Care Team Description 02/17/2025 Patient Outreach [facility] [address] [place] [phone] Bhavana Gomez MD Pre-visit Planning (SDOH screening positive and Tobacco screening negative); SDOH Concerns ([facility]/CHW Abraham Fuchs, TC SDOH pest control) 02/11/2025 1:30 PM EDT Office Visit [facility] ADULT DENTAL [address] [place] [address] [phone] Ronnell Dunlap DDS Dental caries (Primary Dx) 01/31/2025 Refill [facility] [address] [place] [address] [phone] Bhavana Gomez MD Type 2 diabetes mellitus with complications ([facility]/HCC) 01/15/2025 Refill [facility] [address] [place] [address] [phone] Bhavana Gomez MD Acquired hypothyroidism 01/01/2025 11:30 AM EDT Office Visit [facility] [address] [place] [address] [phone] Ronnell Dunlap DDS History of tooth extraction, unspecified edentulism class (Primary Dx); Alveolitis of jaw 12/27/2024 10:30 AM EDT Office Visit [facility] [address] [place] [address] [phone] Ronnell Dunlap DDS Severe dental caries (Primary Dx); Non-restorable tooth 12/27/2024 Refill [facility] [address] [place] [address] [phone] Bhavana Gomez MD 12/20/2024 Population Health Risk Score [facility] () Department [address] [place] [address], [place] [address] Provider, Population Health Generic 12/11/2024 5:20 PM EST Office Visit [facility] [address] [place] [address] Jluis Tracey MD Right lateral epicondylitis (Primary Dx) 12/10/2024 8:45 AM EST Office Visit [facility] [address] [place] [phone] FerrMely ruby Dental calculus (Primary Dx); Dental plaque 11/28/2024 Telephone [facility] [address] [place], [place] [phone] Bhavana Gomez MD February recall 11/26/2024 Refill [facility] [address] [place], [place] [phone] Bhavana Gomez MD Type 2 diabetes mellitus with complications ([facility]) from Last 3 Months Immunizations Immunization Administration Dates Next Due Hep B, adult [...] housing situation today? I have erica ceron 02/17/[address] you li [...] 10:00 AM EDT Office Visit [facility] [address] [place], [place] [phone] Bhavana Gomez MD [address] [place], [place] [phone] 03/17/2025 2:30 PM EDT Office Visit [facility] [address] [place], [place] [phone] Ronnell Dunlap DDS [address] [place], [place] [phone] 06/16/2025 1:00 PM EDT Office Visit [facility] [address] [place], [place] [phone] Crystal Gold Health Maintenance Due Date Last [...] Additional history exists Lipid Panel 11/15/2024 11/15/2023, 1211/2021, 10/22/2020 Diabetes: Urine Protein Screening 01/02/2025 01/03/2024, 09/09/2022, 10/22/2020 Diabetes: Foot Exam 03/25/2025 03/25/2024, 03/25/2024, 03/25/2024, Additional history exists Dental X-Ray: Bitewings 06/05/2025 06/04/20 24, 05/09/2019, 11/21/2017 Dental Oral Exam 06/13/2025 12/10/2024, 01/2025, 06/04/2024, Additional history exists Dental Prophylaxis 06/13/2025 12/10/2024, 0 06/18/2024, 11/07/2019, Additional history exists Diabetes: Hemoglobin A1C 07/04/2025 025, 10/17/2024, 07/16/2024, Additional history exists Eye Exam 02/08/2026 02/09/2024, 050 12/2023, 02/09/2024, Additional history exists Tobacco Screening 02/11/2026 02/11/2025 SDOH Screening 02/17/2026 02/17/2025 Dental X-Ray: Full Mouth 06/05/2027 024, 12/14/2017, [...] patient's age to complete this topic Meningococcal B Vaccine Aged Out No l onger eligible based on patient's age to complete [...] 10:31 AM EDT) No Twan Trujillo PharmD Procedures Procedure Name Priority Date/Time Associated Diagnosis Comments INTRAORAL - PERIAPICAL FIRST RADIOGRAPHIC IMAGE Routine 02/11/2025 1:30 PM EDT [...] 10:07 AM EDT) Creatinine, Urine 90.81 mg/dL [facility] Microalbumin Urine <5.0 mg/L [facility] Microalbum Creatinine Ratio Ur TNP <30 ug/mg cr [facility] Comment:Unable to calculate albumin/creatinine ratio due to lowmicroalbumin or creatinine result. 01/03/2024 10:0 7 AM EDT 01/03/2024 11:13 AM EDT us Bhavana Gomez MD LAB URINE ORDERABLES Fin al Result [facility] [address] [place] [address] [phone] * Lipid Panel, Standard (11/15/2023 12:04 PM EST) Triglycerides 116 <150 mg/dL [facility] Comment:Desirable Triglyceri de: less than 150 mg/dLBorderline High Triglyceride 150-199 mg/dLHigh Triglyceride: 200-499 mg/dLVery High Triglyceride: greater than or equal to 5OO mg/dL Cholesterol 179 <200 mg/dL [facility] Comment:Desirable Cholestero l: less than 200 mg/dLBorderline High Cholesterol: 200-239 mg/dLHigh Cholesterol: greater than 239 mg/dL LDL Cholesterol Calculated 85 <100 mg/dL [facility] Comment:Desirable LDL: less than 100 mg/dLNear Optimal/Above Optimal LDL: 110- 129 mg/dLBorderline High LDL: 130-159 mg/dLHigh LDL: 160-189 mg/dLVery High LDL: greater than or equal to 190 mg/dL HDL Cholesterol 71 >40 mg/dL [facility] Comment:Desirable HDL: great er than 40 mg/dL Note: This HDL assay may give artificially low results in patients with liver disease. 11/15/2023 12:0 4 PM EST 11/15/2023 12:06 PM EST us Bhavana Gomez MD LAB BLOOD ORDERABLES Fin al Result [facility] [address] [place] [phone] [phone] * BI Mammogram Screening Tomosynthesis Bilateral (08/02/2023 2:36 PM EDT) Anatomical Region Laterality Modality Breast Bilateral Mammography 08/02/2023 2:36 PM EDT Narrative 08/21/2023 5:39 AM EST ? [facility] ? [address] ?[place] [address] ? Mammography Report ? Signed ? Patient: Amie Tejada ?MR#: [id number] ?? [id number] ? : 1965 ?Acct:[id number] ? Age/Sex: 57 / F ?ADM Date: 08/02/23 ? Loc: HO.MAMMO ? Attending Dr: Bhavana Gomez MD ? Ordering Physician: Bhavana Gomez MD ?Results: 2Be ?? nign Findings ? Date of Service: 08/02/23 ?Follow Up: 1 Year From Orig ?? inal Mammogram ? Procedure(s): MM tomosynthesis screening BI ?? Accession Number(s): [id number] ? cc: Bhavana Gomez MD ? EXAMINATION: ?? MM SCREENING DIGITAL BREAST TOMOSYNTHESIS, BILATERAL ? CLINICAL INFORMATION: ? Screening. Asymptomatic. ? COMPARISON: ?? Mammography: This study is compared with prior exams dating back to ?? 2018. ? TECHNIQUE: ?? Digital breast tomosynthesis is [...] 0535 ? DD/ 1436 ? TD/TT: ? Shadow Graph Weight Operator: ? Procedure Note Gustavo, Image - 08/21/2023 [facility] [address] [place] [address] [place]. [place], [place] [address] Mammography Report Signed Patient: Amie Tejada#: M [id number] : 1965Acct:[id number] Age/Sex: 57 / FADM Date: 08/02/23 Loc: TWYLA Attending Dr: Bhavana Gomez MD Ordering Physician: Bhavana Gomez MDResults: 2Be nign Findings Date of Service: 08/02/23Follow Up: 1 Year From [facility] ina Mammogram Procedure(s): MM tomosynthesis screening BI Accession Number(s): [id number] cc: Bhavana Gomez MD EXAMINATION: MM SCREENING [...] in OV> 08/21/23 0535 DD/ 1436 TD/TT: Shadow Graph Weight Operator: Bhavana Gomez MD IMG BI PROCEDURES Final Result * Hepatitis Panel, General (06/21/2023 12:55 PM EDT) Hepatitis A IgM Nonreactive Nonreactive [facility] Comment:IgM antibodies to KOENIG V not detected; does not exclude earlyacute or recovered HAV infection. ~Hepatitis B Surface Antibody NONREACTIVE Nonreactive [facility] Comment:Nonreactive: < 8.00 mIU/mL Hepatitis B Core Antibody Nonreactive Nonreactive [facility] Hepatitis C Antibody Nonreactive Nonreactive [facility] Comment:Antibodies to HCV no t detected; does not exclude early acuteHCV infection. Hepatitis B Surface Ag Negative Negative [facility] Blood 06/21/2023 12:5 5 PM EDT 06/21/2023 4:39 PM EDT Bhavana Gomez MD LAB BLOOD ORDERABLES Fin al Result [facility] [address] [place] [address] [phone] from Last 3 Months or Most Recently Relevant to Health Maintenance Insurance [address] [place] [address] [facility] C3 DENTAL-[facility] MEDICAID STAND ADULT * Guarantor: Amie Tejada Account Type Relation to Patient Date of Phone Billing Address Personal/Family Self [address] [place] [address] Care Teams Mass Spectrometry Specialist Relationship Specialty Start Date End Date Bhavana Gomez MD [address] [place] [address] PCP - General Family Medicine 09/28/17 Twan Trujillo, Garrick [address] [place] [phone] Pharmacist Internal Medicine 09/12/23
--- OUTSIDE RECORDS SUMMARY | 2025-02-20 13:11 | XMS_ITS | Encounter Summary ---
Author Organization [employer] Address [address] [facility] 7t [place] [address] Care Team Providers Care Garnett Mechanic Name Role Phone Bhavana Gomez MD Primary Care Provider + Twan Trujillo PharmD Unavailable [phone] Reason for Visit * Reason Comments Med Refill Encounter Details Date Type Department Care Team ([facility] st Contact Info) Description 10/31/2024 Refill [facility] [address] [place], [place] [phone] Bhavana Gomez MD [address] [place], [place] [phone] Postlaminectomy syndrome, not elsewhere classified Social History [...] Description 02/26/2025 10:00 AM EDT Office Visit [facility] [address] [place] [phone] Bhavana Gomez MD [address] [place] [address] 03/17/2025 2:30 PM EDT Office Visit [facility] ADULT DENTAL [address] [place] [address] Ronnell Dunlap DDS [address] [place] [address] 06/16/2025 1:00 PM EDT Office Visit [facility] ADULT DENTAL [address] [place] [phone] Crystal Gold documented as of this encounter [...] classified documented in this encounter Care Teams Garnett Mechanic Relationship Specialty Start Date End Date Bhavana Gomez MD [address] [place] [address] [phone] PCP - General Family Medicine 09/28/17 Twan Trujillo, Garrick [address] [place] [address] [phone] Pharmacist Internal Medicine 09/12/23 documented as of this encounter
--- OUTSIDE RECORDS SUMMARY | 2025-02-20 13:11 | XMS_ITS | Encounter Summary ---
Author Organization [employer] Address [address] [facility] 7t [place] [address] Care Team Providers Care Auto Crane Driver Name Role Phone Bhavana Gomez MD Primary Care Provider + Twan Trujillo PharmD Unavailable [phone] Encounter Details Date Type Department Care Team (Latest Contact Info) Description 05/09/2019 Abstract [facility] CONVERSIONS Dental, Provider, DDS Social History [...] Description 02/26/2025 10:00 AM EDT Office Visit [facility] [address] [place] [address] Bhavana Gomez MD [address] [place] [address] 03/17/2025 2:30 PM EDT Office Visit [facility] ADULT DENTAL [address] [place] [address] Ronnell Dunlap DDS [address] [place] [address] 06/16/2025 1:00 PM EDT Office Visit [facility] ADULT DENTAL [address] [place] [address] Crystal Gold documented as of this encounter Visit Diagnoses Not on filedocumented in this encounter Care Teams Auto Crane Driver Relationship Specialty Start Date End Date Bhavana Gomez MD [address] [place] [address] PCP - General Family Medicine 09/28/17 Twan Trujillo PharmD [address] [place] [address] Pharmacist Internal Medicine 09/12/23 documented as of this encounter
--- OUTSIDE RECORDS SUMMARY | 2025-02-20 13:11 | XMS_ITS | Encounter Summary ---
Author Organization [employer] Address [address] [place] [address] 7t [place] [address] Care Team Providers Care Oil Field Worker Name Role Phone Bhavana Gomez MD Primary Care Provider + Twan Trujillo PharmD Unavailable [phone] Reason for Visit * Reason Comments Med Refill Encounter Details Date Type Department Care Team ([facility] Contact Info) Description 12/19/2022 Refill [facility] [address] [place] [address] [phone] Bhavana Gomez MD [address] [place], [place] [phone] Social History Tobacco Use Types Packs/Day Years [...] Upcoming Encounters Date Type Department Care Team ([facility] Contact Info) Description 02/26/2025 10:00 AM EDT Office Visit [facility] [address] [place], [place] [phone] Bhavana Gomez MD [address] [place], [place] [phone] 03/17/2025 2:30 PM EDT Office Visit [facility] ADULT DENTAL [address] [place], [place] [phone] Ronnell Dunlap DDS [address] [place] [address] 06/16/2025 1:00 PM EDT Office Visit [facility] ADULT DENTAL [address] [place], [place] [phone] Crystal Gold documented as of this encounter Visit Diagnoses Not on filedocumented in this encounter Care Teams Oil Field Worker Relationship Specialty Start Date End Date Bhavana Gomez MD [address] [place] [address] [phone] PCP - General Family Medicine 09/28/17 Twan Trujillo PharmD [address] [place] [address] [phone] Pharmacist Internal Medicine 09/12/23 documented as of this encounter
== END 2025-02-20 12:28 | disposition home or self-care (01) ==
LOC: HO.MAMMO 12:27
PROVIDERS: PCP Internal Medicine; Visit Provider Internal Medicine
DX: Z12.31 Encounter for screening mammogram for malignant neoplasm of breast (principal)
CPT/HCPCS: 77063; 77067

== ENCOUNTER → 2025-02-20 13:15 | Outpatient (BNV) | payer MEDICAID, SELFPAY | PROVIDERS: PCP Internal Medicine; Visit Provider Internal Medicine | DX: Z12.31 Encounter for screening mammogram for malignant neoplasm of breast (principal) | CPT/HCPCS: 77063; 77067 ==

== ENCOUNTER 2025-02-26 16:35 | Outpatient (REF) | payer MEDICAID, SELFPAY ==
--- OUTSIDE RECORDS SUMMARY | 2025-02-26 16:37 | XMS_ITS | Encounter Summary ---
Author Organization [employer] Address [address] [facility] 7t [place] [address] Care Team Providers Care Promotor Group Ticket Sales Name Role Phone Bhavana Gomez MD Primary Care Provider + Twan Trujillo PharmD Unavailable [phone] Reason for Visit * Reason Comments Vaginal Discharge Vaginal Itching Encounter Details Date Type Department Care Team ([facility] st Contact Info) Description 02/26/2025 10:00 AM EDT Office Visit [facility] [address] [place], [place] [phone] Rosalinda Greene MD [address] [place], [place] [phone] Seasonal allergies (Primary Dx); Vaginal discharge; Vaginal itching Social History Tobacco Use Types Packs/Day Years [...] Sign Reading Time Taken Comments Blood Pressure 141/77 02/26/2025 9:46 AM EDT Pulse 84 02/26/2025 9:46 AM EDT Temperature 36.6 ??C (97.9 ??F) 02/26/2025 9:46 AM ED T Respiratory Rate 18 02/26/2025 9:46 AM EDT Oxygen Saturation 95% 02/26/2025 9:46 AM EDT Inhaled Oxygen Concentration - - Weight 88.5 kg (195 lb 2 oz) 02/26/2025 9:46 AM EDT Height 165.1 cm (5' 5 ) 02/26/2025 9:46 AM EDT Body Mass Index 32.47 02/26/2025 9:46 AM EDT documented in this encounter Progress Notes * Rosalinda Greene MD - 02/26/2025 10:00 AM EDT Subjective Patient ID: Amie Rivero is a 59 y.o. female who presents to walk in clinic for Vaginal Discharge and Vaginal Itching. Pt repots seasonal allergies not relieved with zyrtec alone. Main concern is eye itching. She also reprots she believes she has a yeast infection due to itching. No discharge, sexual partners or dysuria. Vaginal Discharge Associated symptoms: vaginal itching Vaginal Itching Review of Systems Genitourinary: Positive for vaginal discharge. Objective Visit Vitals BP (!) 141/77 (BP Location: Right arm, Patient Position: Sitting, BP Cuff Size: Large adult) Pulse 84 Temp 97.9 ??F (36.6 ??C) (Oral) Resp 18 Body mass index is 32.47 kg/m??. Physical Exam Constitutional: Appearance: Normal appearance. HENT: Right Ear: Tympanic membrane normal. Left Ear: Tympanic membrane normal. Nose: Congestion and rhinorrhea present. Mouth/Throat: Pharynx: Oropharynx is clear. No oropharyngeal exudate. Eyes: Conjunctiva/sclera: Conjunctivae normal. Comments: Injected conjunctiva with clear discharge bilaterally Cardiovascular: Rate and Rhythm: Normal rate and regular rhythm. Heart sounds: Normal heart sounds. Pulmonary: Effort: Pulmonary effort is normal. Breath sounds: Normal breath sounds. Musculoskeletal: Cervical back: Normal range of motion. No rigidity or tenderness. Lymphadenopathy: Cervical: No cervical adenopathy. Neurological: Mental Status: She is alert. Psychiatric: Behavior: Behavior normal. Problem List Items Addressed This Visit Seasonal allergies - Primary Discussed avoidance of triggers, sterile saline nasal washes and hydration. -trial of oral antihistamine, nasal steroid and opthalmic mast cell stabilizer Relevant Medications cetirizine (ZyrTEC) 10 MG tablet fluticasone (Flonase) 50 MCG/ACT nasal spray Ketotifen Fumarate 0.035 % solution Other Visit Diagnoses Vaginal discharge Relevant Orders Chlamydia/N. Gonorrhoeae RNA, TMA, Urogenitial Bacterial Vaginosis Panel Vaginal itching Relevant Medications clotrimazole (Lotrimin) 1 % cream Other Relevant Orders Chlamydia/N. Gonorrhoeae RNA, TMA, Urogenitial Bacterial Vaginosis Panel Future Appointments Date Time Provider Department Center 03/17/2025 2:30 PM DORA Waterman DENT [facility] 06/03/2025 12:00 PM Bhavana Gomez MD MEDICINE [facility] 06/16/2025 1:00 PM Crystal MOYA DENT [facility] documented in this encounter Miscellaneous Notes * Assessment & Plan Note - Rosalinda Greene MD - 02/26/2025 3:34 PM EDT Associated Problem(s): Seasonal allergies Discussed avoidance of triggers, sterile saline nasal washes and hydration. -trial of oral antihistamine, nasal steroid and opthalmic mast cell stabilizer documented in this encounter Plan of Treatment Upcoming Encounters Date Type Department Care Team (Late st Contact Info) Description 03/17/2025 2:30 PM EDT Office Visit [facility] ADULT DENTAL [address] [place] [phone] Ronnell Dunlap DDS [address] [place] [phone] 06/03/2025 12:00 PM EDT Office Visit [facility] [address] [place] [phone] Bhavana Gomez MD [address] [place] [phone] 06/16/2025 1:00 PM EDT Office Visit [facility] ADULT DENTAL [address] [place] [phone] Crystal Gold Scheduled Orders Name Type Priority Associated Diagnoses Orde r Schedule Chlamydia/N. Gonorrhoeae RNA, TMA, Urogenitial Microbiology Routine Vaginal discharge Vaginal itching Ordered: 02/26/2025 Bacterial Vaginosis Panel Microbiology Routine Vaginal discharge Vaginal itching Ordered: 02/26/2025 documented as of this encounter Goals Goal Patient Goal Type Associated Problems Recent Progress Patient-Stated? Author Blood Pressure < 140/90 Blood Pressure 141/77(2024 9:46 AM EDT) No Twan Trujillo, PharmJoanne Hemoglobin A1c < 7 Result Component 6.8( 10:31 AM EDT) No Twan Trujillo PharmD documented as of this encounter Visit Diagnoses Diagnosis Seasonal allergies- Primary Allergic rhinitis, cause unspecified Vaginal discharge Leukorrhea, not specified as infective Vaginal itching Pruritus of genital organs documented in this encounter Care Teams Prom[employer] Group Ticket Sales Relationship Specialty Start Date End Date Bhavana Gomez MD [address] [place] [phone] PCP - General Family Medicine 09/28/17 Twan Trujillo, PharmD [address] [place] [address] [phone] Pharmacist Internal Medicine 09/12/23 documented as of this encounter
--- OUTSIDE RECORDS SUMMARY | 2025-02-26 16:37 | XMS_ITS | Encounter Summary ---
Author Organization [email or web address] [facility] Address [address] [place] [address] 7t [place] [address] Care Team Providers Care Wrapping Checker Name Role Phone Bhavana Gomez MD Primary Care Provider + Twan Trujillo PharmD Unavailable [phone] Reason for Visit * Reason Comments Med Refill Encounter Details Date Type Department Care Team (Late Contact Info) Description 12/19/2022 Refill [facility] [address] [place], [place] [phone] Bhavana Gomez MD [address] [place], [place] [phone] Social History Tobacco Use Types Packs/Day Years [...] Encounters Date Type Department Care Team (Late Contact Info) Description 03/17/2025 2:30 PM EDT Office Visit [facility] ADULT DENT[facility] [address] [place], [place] [phone] Ronnell Dunlap DDS [address] [place], [place] [phone] 06/03/2025 12:00 PM EDT Office Visit [facility] [address] [place], [place] [phone] Bhavana Gomez MD [address] [place] [address] 06/16/2025 1:00 PM EDT Office Visit [facility] [address] [place], [place] [phone] Crystal Gold documented as of this encounter Visit Diagnoses Not on filedocumented in this encounter Care Teams Wrapping Checker Relationship Specialty Start Date End Date Bhavana Gomez MD [address] [place] [address] [phone] PCP - General Family Medicine 09/28/17 Twan Trujillo, Garrick [address] [place] [address] [phone] Pharmacist Internal Medicine 09/12/23 documented as of this encounter
--- OUTSIDE RECORDS SUMMARY | 2025-02-26 16:38 | XMS_ITS | Clinical Summary ---
Author Organization [employer] Address [address] [place] [address] 7[address] [place] [address] Care Team Providers Care Dog Races Manager Name Role Phone Bhavana Gomez MD Primary Care Provider + Twan Trujillo PharmD Unavailable [phone] Allergies Active Allergy Reactions Criticality Noted Date Comments Coconut Fatty Acid Rash,Anaphylaxis High 08/26/2020 Other reaction(s): Hives / Skin Rash, Rash Peanut-Containing Drug Products 02/10/2023 Shellfish-Derived Products 01/30/2018 Other reaction(s): Hives / Skin Rash [place] Extract Anaphylaxis High 08/26/2020 Other reaction(s): Hives / Skin Rash Medications EPINEPHrine (EpiPen 2-[place]) 0.3 MG/0.3ML injection syringe Inject 0.3 mL into the muscle. 019 Active albuterol (Ventolin HFA) 108 (90 [...] FOR 12 HOURS DIRECTED 15 patch 2 024 Active traZODone (Desyrel) 50 MG tablet Take [...] 024 Active prazosin (Minipress) 5 MG capsule Active sertraline (Zoloft) 50 MG tablet Take 75 mg by mouth in the morning. 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 30 tablet 2 025 Active fluticasone (Flonase) 50 MCG/ACT nasal sprayIndications: Seasonal allergies Use 1 spray each nostril daily. Shake gently. Before first use, prime pump. After use, clean tip and replace cap. 16 g 2 025 Active Ketotifen Fumarate 0.035 % solutionIndicatio ns:Seasonal allergies Administer 1 drop into affected eye(s) if needed in the morning and at bedtime (allergies). 10 mL 3 025 Active clotrimazole (Lotrimin) 1 % creamIndications: Vaginal itching Apply topically 2 times daily. 14 g 1 025 Active diphenhydrAMINE (BENADryl) 25 MG capsule Take 1 capsule by mouth every 12 (twelve) hours. 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 -trial of oral antihistamine, nasal steroid and opthalmic mast cell stabilizer History of tooth extraction 01/01/2025 Alveolitis of jaw 01/01/2025 Non-restorable tooth 12/27/2024 Encounter for preventive care 07/11/2024 Assessment & Plan (07/11/2024 11:10 AM EDT): Discussed with patient re increase fresh fruit and vegetable intake. Counseled re moderate exercise as tolerated, up to 20min/d Patient feels safe at home. PAP smear: n/a, she is n/a due to 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 Continue Trulicity and Jardiance same dose. [...] Influenza? I counseled her to come to [facility] for further evaluation or that we could [...] proair PRN No brochonspasm today Continue proair [id number] PRN Housing situation unstable 02/28/2019 Ductal hyperplasia [...] furhter med adjustments. She will call to rs appt. Cotinue Glipizide 10mg, Jardiance 25mg, Januvia 100mg And Humalog sliding scale. She agreed with POC Counseled re more frequent low calorie/carb meals. Check fgstk 3x daily Encouraged physical activity as tolerated. FU in 6-8w Declined covid or influenza IZ appt Encounters Date Type Department Care Team Description 02/26/2025 10:00 AM EDT Office Visit [facility] [address] [place] [address] Rosalinda Greene MD Seasonal allergies (Primary Dx); Vaginal discharge; Vaginal itching 02/17/2025 Patient Outreach [facility] [address] [place] [address] Bhavana Gomez MD Pre-visit Planning (SDOH screening positive and Tobacco screening negative); SDOH Concerns (C3CM/CHW [facility] [place] pest control) 02/11/2025 1:30 PM EDT Office Visit [facility] [address] [place] [address] Ronnell Dunlap DDS Dental caries (Primary Dx) 01/31/2025 Refill [facility] [address] [place] [address] Bhavana Gomez MD Type 2 diabetes mellitus with complications ([facility]) 01/15/2025 Refill [facility] [address] [place] [address] Bhavana Gomez MD Acquired hypothyroidism 01/01/2025 11:30 AM EDT Office Visit [facility] [address] [place] [address] Ronnell Dunlap DDS History of tooth extraction, unspecified edentulism class (Primary Dx); Alveolitis of jaw 12/27/2024 10:30 AM EDT Office Visit [facility] [address] [place] [address] Ronnell Dunlap DDS Severe dental caries (Primary Dx); Non-restorable tooth 12/27/2024 Refill [facility] [address] [place] [address] Bhavana Gomez MD 12/20/2024 Population Health Risk Score [facility] () [address] [phone] Provider, Population Health Generic 12/11/2024 5:20 PM EST Office Visit [facility] [address] [place] [phone] Jluis Tracey MD Right lateral epicondylitis (Primary Dx) 12/10/2024 8:45 AM EST Office Visit [facility] [address] [place] [address] Mely Dove Dental calculus (Primary Dx); Dental plaque from Last 3 Months Immunizations Immunization Administration [...] 36.6 ??C (97.9 ??F) 02/26/2025 9:46 AM E DT Respiratory Rate 18 02/26/2025 9:46 AM EDT Oxygen Saturation 95% 02/26/2025 9:46 AM EDT Inhaled Oxygen Concentration - - Weight 88.5 kg (195 lb 2 oz) 02/26/2025 9:46 AM EDT Height 165.1 cm (5' 5 ) 02/26/2025 9:46 AM EDT Body Mass Index 32.47 02/26/2025 9:46 AM EDT Plan of Treatment Upcoming Encounters Date Type Department Care Team (Late st Contact Info) Description 03/17/2025 2:30 PM EDT Office Visit [facility] [address] [place] [address] Ronnell Dunlap DDS [address] [place] [address] 06/03/2025 12:00 PM EDT Office Visit [facility] [address] [place] [address] Bhavana Gomez MD [address] [place] [address] 06/16/2025 1:00 PM EDT Office Visit [facility] [address] [place] [address] Crystal Gold Health Maintenance Due Date Last Done Comments CT Colonography 1965 Colonoscopy 1965 Colorectal Cancer Screening 1965 FIT DNA/Cologuard 1965 FIT 1965 FOBT 1965 HIV Screening 1965 Sigmoidoscopy 1965 Disability Screening 1965 Alcohol/Substance Use Screening 1975 Zoster Vaccines (1 of 2) 2013 Depression Screening 10/25/2023 10/25/2022, 10/25/19 23 RSV Patients and Patients Aged 60 years or older (1 - Risk 60-74 years 1-dose series) 2023 COVID-19 Vaccine (2023- season) 2024 Mammogram 08/02/2024 08/02/2023, 07/10, 07/01/2022, [...] Additional history exists Eye Exam 02/08/2026 02/09/2024, 0512/2023, 02/09/2024, Additional history exists SDOH Screening 02/17/2026 02/17/2025 Tobacco Screening 02/26/2026 02/26/2025 Dental X-Ray: Full Mouth 06/05/2027 024, 12/14/2017, [...] Pressure 141/77(2024 9:46 AM EDT) No Twan Trujillo PharmD Hemoglobin A1c [...] AM EDT) Creatinine, Urine 90.81 mg/dL [facility] Microalbumin Urine <5.0 mg/L [facility] Microalbum Creatinine Ratio Ur TNP <30 ug/mg cr [facility] Comment:Unable to calculate albumin/creatinine ratio due to lowmicroalbumin or creatinine result. 01/03/2024 10:0 7 AM EDT 01/03/2024 11:13 AM EDT us Bhavana Gomez MD LAB URINE ORDERABLES Fin al Result [facility] [address] [place] [phone] * Lipid Panel, Standard (11/15/2023 12:04 PM EST) Triglycerides 116 <150 mg/dL [facility] Comment:Desirable Triglyceri de: less than 150 mg/dLBorderline High Triglyceride 150-199 mg/dLHigh Triglyceride: 200-499 mg/dLVery High Triglyceride: greater than or equal to 5OO mg/dL Cholesterol 179 <200 mg/dL [facility] Comment:Desirable Cholestero l: less than 200 mg/dLBorderline High Cholesterol: 200-239 mg/dLHigh Cholesterol: greater than 239 mg/dL LDL Cholesterol Calculated 85 <100 mg/dL [facility] Comment:Desirable LDL: less than 100 mg/dLNear Optimal/Above Optimal LDL: 110- 129 mg/dLBorderline High LDL: 130-159 mg/dLHigh LDL: 160-189 mg/dLVery High LDL: greater than or equal to 190 mg/dL HDL Cholesterol 71 >40 mg/dL [facility] Comment:Desirable HDL: great er than 40 mg/dL Note: This HDL assay may give artificially low results in patients with liver disease. 11/15/2023 12:0 4 PM EST 11/15/2023 12:06 PM EST us Bhavana Gomez MD LAB BLOOD ORDERABLES Fin al Result [facility] [address] [place] [phone] * BI Mammogram Screening Tomosynthesis Bilateral (08/02/2023 2:36 PM EDT) Anatomical Region Laterality Modality Breast Bilateral Mammography 08/02/2023 2:36 PM EDT Narrative 08/21/2023 5:39 AM EST ? [facility] ? [address] ?[place] [address] ? Mammography Report ? Signed ? Patient: Kwame Rivero,Amie ?MR#: [id number] ?? [id number] ? : 1965 ?Acct:[id number] ? Age/Sex: 57 / F ?ADM Date: 10/25/23 ? Loc: HO.MAMMO ? Attending Dr: Bhavana Gomez MD ? Ordering Physician: Bhavana Gomez MD ?Results: 2Be ?? nign Findings ? Date of Service: 08/02/23 ?Follow Up: 1 Year From Orig ?? inal Mammogram ? Procedure(s): MM tomosynthesis screening BI ?? Accession Number(s): [id number] ? cc: Bhavana Gomez MD ? EXAMINATION: [...] in OV> ? 08/21/23 0535 ? DD/ 143 ? TD/TT: ? Credit Cashier: ? Procedure Note Donotuseinterpreter, Image - 08/21/2023 [facility] [address] [place] [address] Mammography Report Signed Patient: Amie TejadaMR#: [id number] : 1965Acct:[id number] Age/Sex: 57 / FADM Date: 08/02/23 Loc: HO.MAMMO Attending Dr: Bhavana Gomez MD Ordering Physician: Bhavana Gomez MDResults: 2Be nign Findings Date of Service: 08/02/23Follow Up: 1 Year From Orig inal Mammogram Procedure(s): MM tomosynthesis screening BI Accession Number(s): [id number] cc: Bhavana Gomez MD EXAMINATION: MM SCREENING [...] in OV> 08/21/23 0535 DD/ 1436 TD/TT: Credit Cashier: us Bhavana Gomez MD IMG BI PROCEDURES Final Result * Hepatitis Panel, General (06/21/2023 12:55 PM EDT) Hepatitis A IgM Nonreactive Nonreactive [facility] Comment:IgM antibodies to KOENIG V not detected; does not exclude earlyacute or recovered HAV infection. ~Hepatitis B Surface Antibody NONREACTIVE Nonreactive [facility] Comment:Nonreactive: < 8.00 mIU/mL Hepatitis B Core Antibody Nonreactive Nonreactive [facility] Hepatitis C Antibody Nonreactive Nonreactive [facility] Comment:Antibodies to HCV no t detected; does not exclude early acuteHCV infection. Hepatitis B Surface Ag Negative Negative [facility] Blood 06/21/2023 12:5 5 PM EDT 06/21/2023 4:39 PM EDT us Bhavana Gomez MD LAB BLOOD ORDERABLES Fin al Result Performing Organization Address City/State/[facility] Co de Phone Number [facility] [address] [place] [phone] from Last 3 Months or Most Recently Relevant to Health Maintenance Insurance [facility] C3 D[facility] [address] , [place] [address] Care Teams Dog Races Manager Relationship Specialty Start Date End Date Bhavana Gomez MD [address] [place] [address] PCP - General Family Medicine 09/28/17 Twan Trujillo, JocelynnD [address] [place] [address] Pharmacist Internal Medicine 09/12/23
--- OUTSIDE RECORDS SUMMARY | 2025-02-26 16:38 | XMS_ITS | Encounter Summary ---
Author Organization [employer] Address [address] [facility] 7t [place] [address] Care Team Providers Care Business Unit Manager Name Role Phone Bhavana Gomez MD Primary Care Provider + Twan Trujillo PharmD Unavailable [phone] Reason for Visit * Reason Comments Med Refill Encounter Details Date Type Department Care Team ([facility] st Contact Info) Description 10/31/2024 Refill [facility] [address] [place], [place] [phone] Bhavana Gomez MD [address] [place], [place] [phone] Postlaminectomy syndrome, not elsewhere classified Social History [...] Description 03/17/2025 2:30 PM EDT Office Visit [facility] [address] [place] [address] Ronnell Dunlap DDS [address] [place] [address] 06/03/2025 12:00 PM EDT Office Visit [facility] [address] [place] [phone] Bhavana Gomez MD [address] [place] [phone] 06/16/2025 1:00 PM EDT Office Visit [facility] [address] [place] [address] Crystal Gold documented as of this encounter [...] classified documented in this encounter Care Teams Business Unit Manager Relationship Specialty Start Date End Date Bhavana Gomez MD [address] [place] [phone] PCP - General Family Medicine 09/28/17 Twan Trujillo, Garrick [address] [place] [phone] Pharmacist Internal Medicine 09/12/23 documented as of this encounter
--- OUTSIDE RECORDS SUMMARY | 2025-02-26 16:38 | XMS_ITS | Encounter Summary ---
Author Organization [employer] Address [address] [facility] 7t [place] [address] Care Team Providers Care Music Therapy Specialist Name Role Phone Bhavana Gomez MD Primary Care Provider + Twan Trujillo PharmD Unavailable [phone] Reason for Visit * Reason Comments Med Refill Encounter Details Date Type Department Care Team ([facility] st Contact Info) Description 10/30/2024 Refill [facility] [address] [place], [place] [phone] Bhavana Gomez MD [address] [place], [place] [phone] Postlaminectomy syndrome, not elsewhere classified Social History [...] Description 03/17/2025 2:30 PM EDT Office Visit [facility] [address] [place] [phone] Ronnell Dunlap DDS [address] [place] [address] 06/03/2025 12:00 PM EDT Office Visit [facility] [address] [place] [phone] Bhavana Gomez MD [address] [place] [phone] 06/16/2025 1:00 PM EDT Office Visit [facility] [address] [place] [phone] Crystal Gold documented as of this encounter [...] classified documented in this encounter Care Teams Music Therapy Specialist Relationship Specialty Start Date End Date Bhavana Gomez MD [address] [place] [phone] PCP - General Family Medicine 09/28/17 Twan Trujillo, Garrick [address] [place] [phone] Pharmacist Internal Medicine 09/12/23 documented as of this encounter
--- OUTSIDE RECORDS SUMMARY | 2025-02-26 16:38 | XMS_ITS | Encounter Summary ---
Author Organization [facility] Address [address] [place] [address] 7[address] [place] [address] Care Team Providers Care Wash Rack Operator Name Role Phone Bhavana Gomez MD Primary Care Provider + Twan Trujillo PharmD Unavailable [phone] Encounter Details Date Type Department Care Team (Latest Contact Info) Description 05/09/2019 Abstract [facility] CON[facility] Dental, Provider, DDS Social History [...] Encounters Date Type Department Care Team ( Contact Info) Description 03/17/2025 2:30 PM EDT Office Visit [facility] [address] [place] [address] Ronnell Dunlap DDS [address] [place] [address] 06/03/2025 12:00 PM EDT Office Visit [facility] [address] [place] [address] Bhavana Gomez MD [address] [place] [address] 06/16/2025 1:00 PM EDT Office Visit [facility] [address] [place] [address] Crystal Gold documented as of this encounter Visit Diagnoses Not on filedocumented in this encounter Care Teams Wash Rack Operator Relationship Specialty Start Date End Date Bhavana Gomez MD [address] [place] [address] PCP - General Family Medicine 09/28/17 Twan Trujillo PharmD [address] [place] [address] Pharmacist Internal Medicine 09/12/23 documented as of this encounter
[2025-02-27 06:28] LABS: CT PCR NOT DETECTED (Not Detect.); NG PCR NOT DETECTED (Not Detect.)
[2025-02-27 11:46] LABS: Bacterial Vaginosis PCR POSITIVE (Negative); Candida Group PCR DETECTED (Not Detect); Candida glab krusei PCR NOT DETECTED (Not Detect); Trichomonas vaginalis PCR NOT DETECTED (Not Detect)
== END 2025-02-26 16:36 | disposition home or self-care (01) ==
LOC: HO.HHCLNP 16:35
PROVIDERS: Visit Provider Family Medicine
DX: N89.8 Other specified noninflammatory disorders of vagina (principal)
CPT/HCPCS: 81515; 87491; 87591